=== PATIENT | male | born 1980 | race Caucasian/White ===

== ENCOUNTER → 2019-05-14 08:47 | Day surgery (SDC) | payer OTHER ==
[~2019-05-14 08:47] MED LIST: Buffered Lidocaine 1% SYRIN* 1 ML/SYRINGE INTRADERM ONE; Lactated Ringers 1000 ML Bag* 1,000 ML IV SCH; Lidocaine 2% PF * 5 ML VIAL ONE; Midazolam* 1 MG/ML 10 ML VIAL (10 MG) ONE; Ondansetron INJ* 2 MG/ML VIAL ONE; Propofol* 500 MG/50 ML BTL ONE
[2019-05-14 13:40] VITALS: BP 125/79
--- NOTE | 2019-05-14 21:03 | PRO ---
CC: Dr. Osmar Salvador.* EGD REPORT: DATE OF PROCEDURE: 05/14/19 - [facility] PRIMARY CARE PHYSICIAN: Dr. Osmar Salvador. INDICATION FOR PROCEDURE: Cirrhosis, portal hypertension. PROCEDURES PERFORMED: Complete esophagogastroduodenoscopy. MEDICATIONS GIVEN: Please se anesthesia record. DESCRIPTION OF PROCEDURE: After the EGD procedure including the risks, benefits , and alternatives with the risks not limited to perforation, surgery, missed lesions, and/or were explained to the patient, a written informed consent was obtained, IV medication was given, and a bite-block was placed between the teeth. The adult Olympus gastroscope was then inserted into the patient's oropharynx into the tubular esophagus. The tubular esophagus had evidence of [id number] varices in the proximal portion only. These were confined to only the proximal one- third of the esophagus. The distal two-thirds of the esophagus was without any varices whatsoever. The scope was then advanced through the lower esophageal sphincter into the stomach. Direct views showed diffuse portal hypertensive gastropathy most prevalent in the body, fundus and cardia. On retroflexion, no gastric varices were identified. The scope was then advanced through the widely patent pylorus into the duodenal bulb, C-loop, distal duodenum. These were normal in appearance. The scope was then removed from the patient. He tolerated the procedure well. He returned to recovery room in stable condition. IMPRESSION: 1. Complete esophagogastroduodenoscopy. 2. 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 3. No esophageal varices in the distal two-thirds of the esophagus. 4. Portal hypertensive gastropathy is present. 5. Oropharyngeal edema, non-specific, visualized on endoscopy. RECOMMENDATIONS: The patient unusually has proximal varices which are typically not indicative of strictly portal hypertension. His distal esophagus does not have evidence of varices even small in size. Proximal varices are typically related to potentially occlusion of the SVC or difficulties with the azygos vein. I would recommended primary gastro-enterologist obtain imaging of this vasculature by either CT of the chest or other modality. These are quite difficult to band given the sensitive nature of the proximal one-third of the esophagus. Certainly, if he ever develops bleeding, we would recommend banding in the most proximal portion first and then working downhill. We could consider beta blockade in this situation as well. I would recommend a repeat EGD in 1 to 2 years. [id number]/[facility] #: [id number] [facility] HOSPITALBrenna
== END | disposition home or self-care (01) ==
LOC: OR 08:47
PROVIDERS: ATTEND Internal Medicine Gastroenterology
DX: K76.6 Portal hypertension (principal); I85.00 Esophageal varices without bleeding; K74.60 Unspecified cirrhosis of liver; J44.9 Chronic obstructive pulmonary disease, unspecified; I10 Essential (primary) hypertension; B19.20 Unspecified viral hepatitis C without hepatic coma; F17.210 Nicotine dependence, cigarettes, uncomplicated
CPT/HCPCS: J2250; J2405; J2704

== ENCOUNTER 2019-07-16 10:30 | Emergency (ER) | payer SELFPAY ==
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
[2019-07-16 11:04] LABS: Hematocrit 37 % (42-52); Hemoglobin 12.4 g/dL (14.0-18.0); Mean Corpuscular HGB Conc 33 g/dL (31-36); Mean Corpuscular Hemoglobin 28 pg (27-31); Mean Corpuscular Volume 85 fL (80-94); Mean Platelet Volume 7.5 fL (7.4-10.4); Platelet Count 54 10^3/uL (150-450); Red Cell Distribution Width 16 % (10-15); White Blood Count 2.2 10^3/uL (3.5-10.8)
[2019-07-16 11:21] LABS: Albumin 3.2 g/dL (3.2-5.2); Albumin/Globulin Ratio 0.9 (1-3); BUN/Creatinine Ratio 17.6 (8-20); Calcium 8.8 mg/dL (8.6-10.3); EGFR African American 142.5 (>60); EGFR Non-African American 117.7 (>60); Globulin 3.5 g/dL (2-4); Potassium 3.4 mmol/L (3.5-5.0); Total Bilirubin 0.9 mg/dL (0.2-1.0); Total Protein 6.7 g/dL (6.4-8.9)
[2019-07-16] MEDS ORDERED: Iodixanol* (CONTRAST) 320 MG/ML 100 ML SDV IV ONE (11:34)
[2019-07-16 11:49] LABS: ABS Lymphocytes 0.6 10^3/ul (1.0-4.8); ABS Monocytes 0.3 10^3/ul (0-0.8); ABS Neutrophils 1.3 10^3/ul (1.5-7.7); Eosinophil % 1.9 %; Lymphocyte % 28.1 %; Nucleated Red Blood Cells % 0.1
[2019-07-16] MEDS ORDERED: Morphine 4 MG/ML VIAL (1 ml) 4 MG/ML VIAL IV ONE ×2 (12:32→13:47)
[2019-07-16 14:07] VITALS: BP 117/62
== END 2019-07-16 14:06 | disposition short-term general hospital (02) ==
LOC: ED 10:30
DX: S22.32XA Fracture of one rib, left side, initial encounter for closed fracture (principal); M25.512 Pain in left shoulder; D73.5 Infarction of spleen; D61.818 Other pancytopenia; K74.60 Unspecified cirrhosis of liver; Z87.891 Personal history of nicotine dependence; E11.9 Type 2 diabetes mellitus without complications; E03.9 Hypothyroidism, unspecified; J45.909 Unspecified asthma, uncomplicated; I10 Essential (primary) hypertension; R07.9 Chest pain, unspecified; V89.2XXA Person injured in unspecified motor-vehicle accident, traffic, initial encounter; Y92.9 Unspecified place or not applicable
CPT/HCPCS: 36415; 70450; 71260; 72125; 74177; 80053; 83690; 84484; 85025; 93005; 99284; J2270; Q9967

== ENCOUNTER 2022-03-12 12:06 | Inpatient (IN) ==
[2022-03-12 17:06] LABS: ABS Eosinophils 0.1 10^3/ul (0-0.6); ABS Lymphocytes 0.7 10^3/ul (1.0-4.8); ABS Monocytes 0.8 10^3/ul (0-0.8); ABS Neutrophils 2.3 10^3/ul (1.5-7.7); Eosinophil % 3.2 %; Hematocrit 32 % (42-52); Hemoglobin 10.7 g/dL (14.0-18.0); Mean Corpuscular HGB Conc 33 g/dL (31-36); Mean Corpuscular Hemoglobin 27 pg (27-31); Mean Corpuscular Volume 82 fL (80-94); Mean Platelet Volume 6.8 fL (7.4-10.4); Platelet Count 68 10^3/uL (150-450); Red Blood Count 3.92 10^6 /uL (4.18-5.48); Red Cell Distribution Width 15 % (10-15)
[2022-03-12 17:28] LABS: C Reactive Protein 47.18 mg/L (<8.01); Potassium 3.5 mmol/L (3.5-5.0)
[2022-03-12 17:54] LABS: Albumin 2.5 g/dL (3.2-5.2); Albumin/Globulin Ratio 0.8 (1-3); Direct Bilirubin 0.6 mg/dL (0.03-0.18); Globulin 3.1 g/dL (2-4); Total Bilirubin 1.6 mg/dL (0.2-1.0); Total Protein 5.6 g/dL (6.4-8.9)
[2022-03-12] MEDS ORDERED: Morphine 4 MG/ML VIAL (1 ml) IV ONE (17:55)
[2022-03-12] MEDS ORDERED: Cefepime 2 GM in Dextrose 2 GM/50 ML BAG IV ONE (17:55)
[2022-03-12] MEDS ORDERED: metroNIDAZOLE IV 500 MG/100ML 500 MG/100 ML BAG IVPB ONE (17:55)
[2022-03-12] MEDS ORDERED: Vancomycin 1,250 MG in NS 0.9% 250 ml 250 ML IVPB SCH (18:00)
[2022-03-12] MEDS ORDERED: Polyethylene Glycol 3350 17 GM PACKET PO PRN (19:27)
[2022-03-12] MEDS ORDERED: Vancomycin per Pharmacy 1 EA NOTE FOLLOW UP SCH (20:00)
[2022-03-12] MEDS ORDERED: Vancomycin 1,250 MG in NS 0.9% 250 ml 250 ML IVPB ONE (21:00)
[2022-03-12] MEDS: Enoxaparin 40 MG/0.4 ML SYR SUBCUT SCH (21:23)
[2022-03-13 05:14] LABS: INR 1.37 (0.89-1.11)
[2022-03-13 05:28] LABS: ABS Eosinophils 0.1 10^3/ul (0-0.6); ABS Lymphocytes 0.6 10^3/ul (1.0-4.8); ABS Monocytes 0.8 10^3/ul (0-0.8); ABS Neutrophils 2.2 10^3/ul (1.5-7.7); Hematocrit 30 % (42-52); Hemoglobin 10.1 g/dL (14.0-18.0); Lymphocyte % 16.6 %; Mean Corpuscular HGB Conc 34 g/dL (31-36); Mean Corpuscular Hemoglobin 28 pg (27-31); Mean Corpuscular Volume 83 fL (80-94); Nucleated Red Blood Cells % 0.1; Platelet Count 62 10^3/uL (150-450); Red Blood Count 3.59 10^6 /uL (4.18-5.48); Red Cell Distribution Width 15 % (10-15); White Blood Count 3.7 10^3/uL (3.5-10.8)
[2022-03-13 05:31] LABS: Albumin 2.2 g/dL (3.2-5.2); Albumin/Globulin Ratio 0.8 (1-3); C Reactive Protein 38.29 mg/L (<8.01); Calcium 7.7 mg/dL (8.6-10.3); Globulin 2.9 g/dL (2-4); Potassium 3.7 mmol/L (3.5-5.0); Total Bilirubin 1.7 mg/dL (0.2-1.0); Total Protein 5.1 g/dL (6.4-8.9); eGFR CKD-EPI 126.2 (>60)
[2022-03-13 05:49] LABS: Ferritin 171.7 ng/mL (24-336)
[2022-03-13] MEDS: Vancomycin 1,250 MG in NS 0.9% 250 ml 250 ML IVPB SCH ×3 (06:08→22:05)
[2022-03-13] MEDS: Cefepime 2 GM in Dextrose 2 GM/50 ML BAG IV SCH ×2 (06:21→17:37)
[2022-03-13] MEDS ORDERED: Methadone ORALSYR CONC LIQ 10 MG/ML PO SCH (09:00)
[2022-03-13] MEDS: Venlafaxine XR 75 mg PO SCH (10:58)
[2022-03-13] MEDS: Lactulose 30 ml UDC PO SCH ×2 (10:58→22:13)
[2022-03-13] MEDS ORDERED: Vancomycin per Pharmacy 1 EA NOTE FOLLOW UP SCH (15:00)
[2022-03-13] MEDS ORDERED: Vancomycin Trough Check NOTE FOLLOW UP ONE (21:00)
[2022-03-13] MEDS: Enoxaparin 40 MG/0.4 ML SYR SUBCUT SCH (22:05)
[2022-03-14] MEDS ORDERED: Vancomycin 1,500 MG in NS 0.9% 250 ml 250 ML IVPB SCH (06:00)
[2022-03-14 06:03] LABS: INR 1.37 (0.89-1.11)
[2022-03-14 06:05] LABS: ABS Eosinophils 0.1 10^3/ul (0-0.6); ABS Lymphocytes 0.6 10^3/ul (1.0-4.8); ABS Monocytes 0.8 10^3/ul (0-0.8); ABS Neutrophils 2.8 10^3/ul (1.5-7.7); Eosinophil % 3.1 %; Hematocrit 32 % (42-52); Hemoglobin 10.7 g/dL (14.0-18.0); Lymphocyte % 14.6 %; Mean Corpuscular HGB Conc 33 g/dL (31-36); Mean Corpuscular Hemoglobin 28 pg (27-31); Mean Corpuscular Volume 83 fL (80-94); Nucleated Red Blood Cells % 0.1; Platelet Count 71 10^3/uL (150-450); Red Blood Count 3.88 10^6 /uL (4.18-5.48); Red Cell Distribution Width 15 % (10-15); White Blood Count 4.4 10^3/uL (3.5-10.8)
[2022-03-14] MEDS: Cefepime 2 GM in Dextrose 2 GM/50 ML BAG IV SCH ×2 (06:07→17:50)
[2022-03-14 06:30] LABS: Albumin 2.3 g/dL (3.2-5.2); Albumin/Globulin Ratio 0.7 (1-3); Calcium 7.8 mg/dL (8.6-10.3); Globulin 3.1 g/dL (2-4); Magnesium 1.9 mg/dL (1.9-2.7); Potassium 3.8 mmol/L (3.5-5.0); Total Bilirubin 2.3 mg/dL (0.2-1.0); Total Protein 5.4 g/dL (6.4-8.9); eGFR CKD-EPI 132.2 (>60)
[2022-03-14] MEDS: Lactulose 30 ml UDC PO SCH ×2 (08:53→21:13)
[2022-03-14] MEDS: Venlafaxine XR 75 mg PO SCH (08:53)
[2022-03-14] MEDS ORDERED: Influenza vaccine *QUAD* *2022-23* 0.5 ML SYRINGE IM ONE (09:00)
[2022-03-14] MEDS ORDERED: Pneumococcal Vac 23-Polyvalent IM ONE (09:00)
[2022-03-14] MEDS: Methadone ORALSYR CONC LIQ 10 MG/ML PO SCH (10:06)
[2022-03-14] MEDS ORDERED: Iodixanol (CONTRAST) 320 MG/ML 100 ML SDV IV ONE (11:38)
[2022-03-14] MEDS: Enoxaparin 40 MG/0.4 ML SYR SUBCUT SCH (21:12)
[2022-03-15] MEDS ORDERED: Vancomycin Trough Check NOTE FOLLOW UP ONE (05:30)
[2022-03-15] MEDS: Cefepime 2 GM in Dextrose 2 GM/50 ML BAG IV SCH ×2 (06:07→18:41)
[2022-03-15 06:58] LABS: ABS Basophils 0.1 10^3/ul (0-0.2); ABS Eosinophils 0.2 10^3/ul (0-0.6); ABS Lymphocytes 0.7 10^3/ul (1.0-4.8); ABS Monocytes 1.1 10^3/ul (0-0.8); ABS Neutrophils 3.9 10^3/ul (1.5-7.7); Eosinophil % 3.1 %; Hematocrit 32 % (42-52); Hemoglobin 10.8 g/dL (14.0-18.0); Lymphocyte % 12.3 %; Mean Corpuscular HGB Conc 34 g/dL (31-36); Mean Corpuscular Hemoglobin 28 pg (27-31); Mean Corpuscular Volume 83 fL (80-94); Platelet Count 75 10^3/uL (150-450); Red Blood Count 3.88 10^6 /uL (4.18-5.48); Red Cell Distribution Width 15 % (10-15); White Blood Count 5.9 10^3/uL (3.5-10.8)
[2022-03-15 07:29] LABS: Albumin 2.4 g/dL (3.2-5.2); Albumin/Globulin Ratio 0.7 (1-3); Calcium 7.6 mg/dL (8.6-10.3); Globulin 3.4 g/dL (2-4); Magnesium 1.9 mg/dL (1.9-2.7); Phosphorus 2.7 mg/dL (2.5-5.0); Potassium 3.7 mmol/L (3.5-5.0); Total Bilirubin 2.1 mg/dL (0.2-1.0); Total Protein 5.8 g/dL (6.4-8.9); eGFR CKD-EPI 130.6 (>60)
[2022-03-15] MEDS: Lactulose 30 ml UDC PO SCH ×2 (08:42→20:18)
[2022-03-15] MEDS: Venlafaxine XR 75 mg PO SCH (08:42)
[2022-03-15] MEDS: Methadone ORALSYR CONC LIQ 10 MG/ML PO SCH (10:30)
[2022-03-15] MEDS: Enoxaparin 40 MG/0.4 ML SYR SUBCUT SCH (20:18)
[2022-03-16] MEDS: Cefepime 2 GM in Dextrose 2 GM/50 ML BAG IV SCH ×2 (05:08→17:44)
[2022-03-16 07:31] LABS: Hematocrit 32 % (42-52); Hemoglobin 10.7 g/dL (14.0-18.0); Mean Corpuscular HGB Conc 34 g/dL (31-36); Mean Corpuscular Hemoglobin 28 pg (27-31); Mean Corpuscular Volume 83 fL (80-94); Mean Platelet Volume 7.1 fL (7.4-10.4); Platelet Count 76 10^3/uL (150-450); Red Blood Count 3.82 10^6 /uL (4.18-5.48); Red Cell Distribution Width 16 % (10-15); White Blood Count 5.5 10^3/uL (3.5-10.8)
[2022-03-16 07:45] LABS: Calcium 7.9 mg/dL (8.6-10.3); Potassium 4.2 mmol/L (3.5-5.0); eGFR CKD-EPI 133.9 (>60)
[2022-03-16] MEDS: Venlafaxine XR 75 mg PO SCH (10:08)
[2022-03-16] MEDS: Lactulose 30 ml UDC PO SCH ×2 (10:08→19:39)
[2022-03-16] MEDS: Methadone ORALSYR CONC LIQ 10 MG/ML PO SCH (10:08)
[2022-03-16 10:49] LABS: Albumin 2.4 g/dL (3.2-5.2); Albumin/Globulin Ratio 0.7 (1-3); Globulin 3.4 g/dL (2-4); Total Bilirubin 1.7 mg/dL (0.2-1.0); Total Protein 5.8 g/dL (6.4-8.9)
[2022-03-16 11:30] LABS: INR 1.26 (0.89-1.11)
[2022-03-16] MEDS: Enoxaparin 40 MG/0.4 ML SYR SUBCUT SCH (19:40)
[2022-03-17] MEDS: Cefepime 2 GM in Dextrose 2 GM/50 ML BAG IV SCH ×2 (05:53→18:31)
[2022-03-17 06:54] LABS: Hematocrit 33 % (42-52); Hemoglobin 11.1 g/dL (14.0-18.0); Mean Corpuscular HGB Conc 34 g/dL (31-36); Mean Corpuscular Hemoglobin 28 pg (27-31); Mean Corpuscular Volume 83 fL (80-94); Mean Platelet Volume 7.1 fL (7.4-10.4); Platelet Count 84 10^3/uL (150-450); Red Blood Count 3.95 10^6 /uL (4.18-5.48); Red Cell Distribution Width 16 % (10-15); White Blood Count 5.5 10^3/uL (3.5-10.8)
[2022-03-17 07:11] LABS: Calcium 8.1 mg/dL (8.6-10.3); eGFR CKD-EPI 136.7 (>60)
[2022-03-17] MEDS: Lactulose 30 ml UDC PO SCH ×2 (10:26→20:04)
[2022-03-17] MEDS: Methadone ORALSYR CONC LIQ 10 MG/ML PO SCH (10:26)
[2022-03-17 12:34] LABS: Hepatitis C Antibody Reactive (Negative)
[2022-03-17] MEDS: Venlafaxine XR 75 mg PO SCH (12:54)
[2022-03-17] MEDS: Enoxaparin 40 MG/0.4 ML SYR SUBCUT SCH (20:05)
[2022-03-18] MEDS: Cefepime 2 GM in Dextrose 2 GM/50 ML BAG IV SCH (05:41)
[2022-03-18] MEDS: Lactulose 30 ml UDC PO SCH (09:36)
[2022-03-18] MEDS: Methadone ORALSYR CONC LIQ 10 MG/ML PO SCH (09:36)
[2022-03-18] MEDS: Venlafaxine XR 75 mg PO SCH (09:37)
[2022-03-18 11:20] VITALS: BP 125/57
== END 2022-03-18 12:50 | disposition home or self-care (01) | DRG 383 ==
LOC: ED 12:06 → SUATTDRO 03-13 00:03 → MED 03-13 00:03
PROVIDERS: ADMIT Student in an Organized Health Care Education/Training Program; ATTEND Internal Medicine

== ENCOUNTER 2023-01-07 13:35 | Inpatient (IN) ==
[2023-01-07 17:02] LABS: Hematocrit 32.3 % (38-53); Hemoglobin 11.1 g/dL (13.2-16.3); Mean Corpuscular Hemoglobin 28.2 pg (27-33); Mean Corpuscular Hgb Conc 34.3 g/dL (31-36); Mean Corpuscular Volume 82.4 fL (80-97); Red Blood Count 3.92 10^6/uL (4.06-5.63); Red Cell Distribution Width 14.9 % (12-17); White Blood Count 5.4 10^3/uL (3.6-10.2)
[2023-01-07 17:04] LABS: INR 1.81 (0.88-1.18)
[2023-01-07 17:35] LABS: ABS Eosinophils 0.1 10^3/uL (0.0-0.5); ABS Lymphocytes 0.5 10^3/uL (1.0-4.8); ABS Monocytes 0.6 10^3/uL (0.0-1.1); ABS Neutrophils 4.1 10^3/uL (1.5-7.6); ABS Nucleated RBC 0.01 10^3/ul; Eosinophil % 2.1 %; Lymphocyte % 9.2 %; Mean Platelet Volume 7.3 fL (7.5-11.2); Nucleated Red Blood Cells % 0.2 /100 WBC (0.0-0.4); Platelet Count 70 10^3/uL (150-450)
[2023-01-07 17:52] LABS: Albumin/Globulin Ratio 0.9 (1-3); C Reactive Protein 117.41 mg/L (<8.01); Calcium 8.5 mg/dL (8.6-10.3); Creatinine, Serum 0.61 mg/dL (0.67-1.17); Globulin 3.3 g/dL (2-4); Potassium 3.1 mmol/L (3.5-5.0); Total Bilirubin 2.1 mg/dL (0.2-1.0); Total Protein 6.3 g/dL (6.4-8.9)
[2023-01-07] MEDS ORDERED: Cefepime 2 GM in Dextrose 2 GM/50 ML BAG IV ONE (18:23)
[2023-01-07] MEDS ORDERED: Morphine 4 MG/ML VIAL (1 ml) IV ONE (18:23)
[2023-01-07] MEDS ORDERED: Vancomycin 1,500 MG in NS 0.9% 250 ml 250 ML IVPB ONE (18:23)
[2023-01-07] MEDS ORDERED: Venlafaxine XR 75 mg PO ONE (19:59)
[2023-01-07] MEDS ORDERED: Enoxaparin 40 MG/0.4 ML SYR SUBCUT SCH (21:00)
[2023-01-07] MEDS ORDERED: Vancomycin per Pharmacy 1 EA NOTE FOLLOW UP SCH (21:00)
[2023-01-07] MEDS ORDERED: cefTRIAXone 2 gm/50 mL D5W 2 GM/50 ML BAG IV SCH ×2 (21:15→21:45)
[2023-01-07] MEDS ORDERED: Potassium Chlor 20 meq TAB.ER PO ONE (21:37)
[2023-01-08] MEDS: Lactulose 30 ml UDC PO SCH ×5 (00:39→21:16)
[2023-01-08] MEDS: metroNIDAZOLE IV 500 MG/100ML 500 MG/100 ML BAG IVPB SCH ×3 (00:41→13:00)
[2023-01-08] MEDS ORDERED: Morphine 2 MG/ML SYRINGE IV PRN (04:52)
[2023-01-08 05:56] LABS: ABS Eosinophils 0.1 10^3/uL (0.0-0.5); ABS Lymphocytes 0.6 10^3/uL (1.0-4.8); ABS Monocytes 0.5 10^3/uL (0.0-1.1); ABS Nucleated RBC 0.04 10^3/ul; Eosinophil % 3.1 %; Hemoglobin 10.7 g/dL (13.2-16.3); Lymphocyte % 14.1 %; Mean Corpuscular Hemoglobin 28.3 pg (27-33); Mean Corpuscular Hgb Conc 34.4 g/dL (31-36); Mean Corpuscular Volume 82.3 fL (80-97); Mean Platelet Volume 7.2 fL (7.5-11.2); Nucleated Red Blood Cells % 0.8 /100 WBC (0.0-0.4); Platelet Count 69 10^3/uL (150-450); Red Blood Count 3.77 10^6/uL (4.06-5.63); Red Cell Distribution Width 15.3 % (12-17); White Blood Count 4.4 10^3/uL (3.6-10.2)
[2023-01-08] MEDS ORDERED: Magnesium Sulf 4 GM/100 ML IV 4,000 MG/100 ML BAG IVPB ONE (06:36)
[2023-01-08] MEDS: Vancomycin 1,250 MG in NS 0.9% 250 ml 250 ML IVPB SCH ×2 (06:42→14:58)
[2023-01-08] MEDS: Venlafaxine XR 75 mg PO SCH (08:54)
[2023-01-08] MEDS: MILK THISTLE 150 MG PO SCH (08:54)
[2023-01-08] MEDS ORDERED: Iodixanol (CONTRAST) 320 MG/ML 100 ML SDV IV ONE (10:15)
[2023-01-08] MEDS ORDERED: Lactulose 30 ml UDC PO SCH (14:00)
[2023-01-08] MEDS: Lactated Ringers 1000 ml BAG 1,000 ML IV SCH (18:31)
[2023-01-08] MEDS: cefTRIAXone 2 gm/50 mL D5W 2 GM/50 ML BAG IV SCH (21:16)
[2023-01-09] MEDS: Lactated Ringers 1000 ml BAG 1,000 ML IV SCH (03:19)
[2023-01-09] MEDS ORDERED: Vancomycin Trough Check NOTE FOLLOW UP ONE (05:30)
[2023-01-09 07:08] LABS: ABS Eosinophils 0.1 10^3/uL (0.0-0.5); ABS Lymphocytes 0.6 10^3/uL (1.0-4.8); ABS Monocytes 0.6 10^3/uL (0.0-1.1); ABS Neutrophils 2.3 10^3/uL (1.5-7.6); Eosinophil % 2.4 %; Hematocrit 30.1 % (38-53); Hemoglobin 10.4 g/dL (13.2-16.3); Mean Corpuscular Hemoglobin 28.7 pg (27-33); Mean Corpuscular Hgb Conc 34.7 g/dL (31-36); Mean Corpuscular Volume 82.8 fL (80-97); Mean Platelet Volume 6.9 fL (7.5-11.2); Nucleated Red Blood Cells % 0.1 /100 WBC (0.0-0.4); Platelet Count 70 10^3/uL (150-450); Red Blood Count 3.64 10^6/uL (4.06-5.63); Red Cell Distribution Width 14.9 % (12-17); White Blood Count 3.7 10^3/uL (3.6-10.2)
[2023-01-09 07:22] LABS: Calcium 8.2 mg/dL (8.6-10.3); Creatinine, Serum 0.55 mg/dL (0.67-1.17); Potassium 3.9 mmol/L (3.5-5.0); eGFR CKD-EPI 126.9 (>60)
[2023-01-09] MEDS: Venlafaxine XR 75 mg PO SCH (09:29)
[2023-01-09] MEDS: Lactulose 30 ml UDC PO SCH ×4 (09:29→20:50)
[2023-01-09] MEDS: MILK THISTLE 150 MG PO SCH (09:30)
[2023-01-09] MEDS: Acetaminophen IV 1 GM/100ML 1,000 MG/100 ML BAG IV SCH (20:47)
[2023-01-09] MEDS: cefTRIAXone 2 gm/50 mL D5W 2 GM/50 ML BAG IV SCH (21:21)
[2023-01-10] MEDS: Acetaminophen IV 1 GM/100ML 1,000 MG/100 ML BAG IV SCH ×3 (04:35→21:04)
[2023-01-10 06:42] LABS: ABS Eosinophils 0.1 10^3/uL (0.0-0.5); ABS Lymphocytes 0.6 10^3/uL (1.0-4.8); ABS Monocytes 0.5 10^3/uL (0.0-1.1); ABS Nucleated RBC 0.01 10^3/ul; Hematocrit 30.9 % (38-53); Hemoglobin 10.5 g/dL (13.2-16.3); Lymphocyte % 18.9 %; Mean Corpuscular Hemoglobin 28.6 pg (27-33); Mean Corpuscular Volume 84.2 fL (80-97); Mean Platelet Volume 7.3 fL (7.5-11.2); Nucleated Red Blood Cells % 0.2 /100 WBC (0.0-0.4); Platelet Count 73 10^3/uL (150-450); Red Blood Count 3.68 10^6/uL (4.06-5.63); Red Cell Distribution Width 15.1 % (12-17); White Blood Count 3.2 10^3/uL (3.6-10.2)
[2023-01-10 06:47] LABS: Calcium 8.4 mg/dL (8.6-10.3); Creatinine, Serum 0.57 mg/dL (0.67-1.17); Potassium 4.5 mmol/L (3.5-5.0); eGFR CKD-EPI 125.5 (>60)
[2023-01-10] MEDS: Lactulose 30 ml UDC PO SCH ×4 (11:26→20:31)
[2023-01-10] MEDS: Venlafaxine XR 75 mg PO SCH (11:26)
[2023-01-10] MEDS: MILK THISTLE 150 MG PO SCH (12:00)
[2023-01-10] MEDS: cefTRIAXone 2 gm/50 mL D5W 2 GM/50 ML BAG IV SCH (21:19)
[2023-01-11] MEDS: Acetaminophen IV 1 GM/100ML 1,000 MG/100 ML BAG IV SCH ×2 (03:33→11:46)
[2023-01-11] MEDS: Venlafaxine XR 75 mg PO SCH (07:55)
[2023-01-11] MEDS: MILK THISTLE 150 MG PO SCH (07:57)
[2023-01-11] MEDS: Lactulose 30 ml UDC PO SCH ×2 (07:57→13:11)
[2023-01-11 09:59] LABS: Calcium 8.6 mg/dL (8.6-10.3); Creatinine, Serum 0.59 mg/dL (0.67-1.17); Potassium 5.1 mmol/L (3.5-5.0); eGFR CKD-EPI 124.2 (>60)
[2023-01-11 10:02] VITALS: BP 102/57
[2023-01-11 10:02] LABS: ABS Eosinophils 0.1 10^3/uL (0.0-0.5); ABS Lymphocytes 0.5 10^3/uL (1.0-4.8); ABS Monocytes 0.4 10^3/uL (0.0-1.1); ABS Neutrophils 2.4 10^3/uL (1.5-7.6); Eosinophil % 2.8 %; Hematocrit 31.8 % (38-53); Hemoglobin 10.8 g/dL (13.2-16.3); Lymphocyte % 15.6 %; Mean Corpuscular Hemoglobin 28.8 pg (27-33); Mean Corpuscular Volume 84.7 fL (80-97); Mean Platelet Volume 6.8 fL (7.5-11.2); Nucleated Red Blood Cells % 0.1 /100 WBC (0.0-0.4); Platelet Count 71 10^3/uL (150-450); Red Blood Count 3.75 10^6/uL (4.06-5.63); White Blood Count 3.4 10^3/uL (3.6-10.2)
[2023-01-11 10:05] LABS: INR 1.76 (0.88-1.18)
== END 2023-01-11 14:15 | disposition home or self-care (01) | DRG 383 ==
LOC: ED 13:35 → EDHOLD 13:35 → SUATTDRO 20:25 → EDHOLD 01-08 14:21 → MED 01-08 14:54 → SUATTDRO 01-09 12:26
PROVIDERS: ADMIT Internal Medicine; ATTEND Internal Medicine

== ENCOUNTER 2023-02-23 14:24 | Observation (INO) ==
[2023-02-23 17:41] LABS: ABS Eosinophils 0.2 10^3/uL (0.0-0.5); ABS Lymphocytes 0.6 10^3/uL (1.0-4.8); ABS Monocytes 0.7 10^3/uL (0.0-1.1); ABS Neutrophils 2.4 10^3/uL (1.5-7.6); Eosinophil % 4.8 %; Hematocrit 32.9 % (38-53); Hemoglobin 11.2 g/dL (13.2-16.3); Lymphocyte % 15.3 %; Mean Corpuscular Hemoglobin 28.6 pg (27-33); Mean Corpuscular Hgb Conc 34.1 g/dL (31-36); Mean Corpuscular Volume 83.9 fL (80-97); Nucleated Red Blood Cells % 0.1 /100 WBC (0.0-0.4); Platelet Count 63 10^3/uL (150-450); Red Blood Count 3.92 10^6/uL (4.06-5.63); Red Cell Distribution Width 16.3 % (12-17); White Blood Count 3.9 10^3/uL (3.6-10.2)
[2023-02-23 17:49] LABS: Albumin 2.9 g/dL (3.2-5.2); Albumin/Globulin Ratio 0.9 (1-3); C Reactive Protein 32.11 mg/L (<8.01); Calcium 8.5 mg/dL (8.6-10.3); Creatinine, Serum 0.61 mg/dL (0.67-1.17); Globulin 3.3 g/dL (2-4); Potassium 3.6 mmol/L (3.5-5.0); Total Bilirubin 1.5 mg/dL (0.2-1.0); Total Protein 6.2 g/dL (6.4-8.9)
[2023-02-23] MEDS ORDERED: Lactulose 30 ml UDC PO ONE (20:29)
[2023-02-23] MEDS ORDERED: cefTRIAXone 1 gm/50 mL D5W 1 GM/50 ML BAG IV ONE (20:35)
[2023-02-23] MEDS ORDERED: metroNIDAZOLE IV 500 MG/100ML 500 MG/100 ML BAG IVPB ONE (20:36)
[2023-02-23] MEDS ORDERED: Morphine 2 MG/ML SYRINGE IV ONE (20:57)
[2023-02-24 07:52] LABS: ABS Eosinophils 0.2 10^3/uL (0.0-0.5); ABS Lymphocytes 0.8 10^3/uL (1.0-4.8); ABS Monocytes 0.7 10^3/uL (0.0-1.1); ABS Neutrophils 2.3 10^3/uL (1.5-7.6); ABS Nucleated RBC 0.01 10^3/ul; Eosinophil % 4.2 %; Hematocrit 32.3 % (38-53); Hemoglobin 11.1 g/dL (13.2-16.3); Lymphocyte % 19.8 %; Mean Corpuscular Hemoglobin 28.8 pg (27-33); Mean Corpuscular Hgb Conc 34.5 g/dL (31-36); Mean Corpuscular Volume 83.4 fL (80-97); Mean Platelet Volume 7.4 fL (7.5-11.2); Nucleated Red Blood Cells % 0.1 /100 WBC (0.0-0.4); Platelet Count 67 10^3/uL (150-450); Red Blood Count 3.87 10^6/uL (4.06-5.63); Red Cell Distribution Width 16.6 % (12-17); White Blood Count 3.9 10^3/uL (3.6-10.2)
[2023-02-24 08:03] LABS: Calcium 8.1 mg/dL (8.6-10.3); Creatinine, Serum 0.56 mg/dL (0.67-1.17); Potassium 3.9 mmol/L (3.5-5.0); eGFR CKD-EPI 126.2 (>60)
[2023-02-24] MEDS: Lactulose 30 ml UDC PO SCH ×3 (09:39→23:08)
[2023-02-24] MEDS: Cholecalciferol (VIT D3) 1,000 unit TAB PO SCH (09:41)
[2023-02-24] MEDS: Collagenase 250 units/gm OINT 1 tube TOPICAL SCH (09:41)
[2023-02-24] MEDS: Venlafaxine XR 75 mg PO SCH (10:48)
[2023-02-24] MEDS: Methadone ORALSYR CONC LIQ 10 MG/ML PO SCH (19:36)
[2023-02-24] MEDS ORDERED: cefTRIAXone 1 gm/50 mL D5W 1 GM/50 ML BAG IV SCH (21:00)
[2023-02-25 06:19] LABS: ABS Eosinophils 0.2 10^3/uL (0.0-0.5); ABS Lymphocytes 0.8 10^3/uL (1.0-4.8); ABS Monocytes 0.6 10^3/uL (0.0-1.1); ABS Neutrophils 2.7 10^3/uL (1.5-7.6); ABS Nucleated RBC 0.01 10^3/ul; Eosinophil % 3.9 %; Hemoglobin 11.6 g/dL (13.2-16.3); Lymphocyte % 18.6 %; Mean Corpuscular Hemoglobin 28.6 pg (27-33); Mean Corpuscular Hgb Conc 34.2 g/dL (31-36); Mean Corpuscular Volume 83.6 fL (80-97); Mean Platelet Volume 7.3 fL (7.5-11.2); Nucleated Red Blood Cells % 0.2 /100 WBC (0.0-0.4); Platelet Count 64 10^3/uL (150-450); Red Blood Count 4.06 10^6/uL (4.06-5.63); Red Cell Distribution Width 16.2 % (12-17); White Blood Count 4.3 10^3/uL (3.6-10.2)
[2023-02-25 06:30] LABS: Calcium 8.4 mg/dL (8.6-10.3); Creatinine, Serum 0.6 mg/dL (0.67-1.17); Magnesium 1.8 mg/dL (1.9-2.7); Potassium 3.5 mmol/L (3.5-5.0); eGFR CKD-EPI 123.6 (>60)
[2023-02-25] MEDS ORDERED: Magnesium Sulfate IV 1GM/100ML 1 GM/100 ML BAG IV ONE (07:26)
[2023-02-25] MEDS: Methadone ORALSYR CONC LIQ 10 MG/ML PO SCH (10:33)
[2023-02-25] MEDS: Cholecalciferol (VIT D3) 1,000 unit TAB PO SCH (10:33)
[2023-02-25] MEDS: Venlafaxine XR 75 mg PO SCH (10:33)
[2023-02-25] MEDS: Lactulose 30 ml UDC PO SCH ×2 (10:34→16:11)
[2023-02-25] MEDS: Collagenase 250 units/gm OINT 1 tube TOPICAL SCH (10:40)
[2023-02-25 14:07] VITALS: BP 134/70
== END 2023-02-25 16:20 | disposition home or self-care (01) ==
LOC: ED 14:24 → EDHOLD 14:24 → SUATTDRO 21:16 → MED 02-24 16:47
PROVIDERS: ADMIT Student in an Organized Health Care Education/Training Program; ATTEND Internal Medicine

== ENCOUNTER 2024-03-26 16:53 | Inpatient (IN) ==
[2024-03-26 17:32] LABS: Hematocrit 31.2 % (38-53); Hemoglobin 10.3 g/dL (13.2-16.3); Mean Corpuscular Hemoglobin 28.6 pg (27-33); Mean Corpuscular Volume 86.7 fL (80-97); Red Cell Distribution Width 18.2 % (12-17); White Blood Count 5.7 10^3/uL (3.6-10.2)
[2024-03-26 17:56] LABS: ABS Basophils 0.1 10^3/uL (0.0-0.1); ABS Eosinophils 0.1 10^3/uL (0.0-0.5); ABS Lymphocytes 0.6 10^3/uL (1.0-4.8); ABS Monocytes 0.8 10^3/uL (0.0-1.1); ABS Neutrophils 4.1 10^3/uL (1.5-7.6); Eosinophil % 1.6 %; Lymphocyte % 10.9 %; Mean Platelet Volume 7.9 fL (7.5-11.2); Platelet Count 64 10^3/uL (150-450)
[2024-03-26 18:05] LABS: Albumin 2.1 g/dL (3.2-5.2); Albumin/Globulin Ratio 0.7 (1-3); C Reactive Protein 29.29 mg/L (<8.01); Calcium 7.1 mg/dL (8.6-10.3); Creatinine, Serum 0.52 mg/dL (0.67-1.17); Potassium 3.4 mmol/L (3.5-5.0); Total Protein 5.1 g/dL (6.4-8.9); eGFR CKD-EPI 127.5 (>60)
[2024-03-26 19:37] LABS: Urine Appearance Clear; Urine Bilirubin 1+ (Negative); Urine Blood Negative (Negative); Urine Color Dark-Yellow; Urine Glucose Negative (Negative); Urine Ketones Negative (Negative); Urine Nitrite Negative (Negative); Urine Protein Trace (Negative); Urine Urobilinogen 3+ (Negative)
[2024-03-26] MEDS: Morphine 2 MG/ML SYRINGE IV ONE (20:21)
[2024-03-27] MEDS: Iodixanol (CONTRAST) 320 MG/ML 100 ML SDV IV ONE (02:16)
[2024-03-27] MEDS: Piperacillin/Tazobac 3.375 BAG 3.375 GM/100 ML BAG IV ONE (04:52)
[2024-03-27] MEDS: Vancomycin 1,250 MG in NS 0.9% 250 ml 250 ML IVPB ONE (06:18)
[2024-03-27] MEDS: Bumetanide IV 0.25 MG/ML 4 ml VIAL (1 mg) IV SLOW PU ONE ×2 (06:54→14:24)
[2024-03-27 07:16] LABS: INR 1.92 (0.85-1.14)
[2024-03-27] MEDS: Albumin Human 25% 25 GM/100 ML BTL IV ONE (08:22)
[2024-03-27] MEDS: Lactulose 30 ml UDC PO SCH (08:29)
[2024-03-27] MEDS: Potassium Chlor 20 meq TAB.ER PO ONE ×2 (08:29→20:52)
[2024-03-27] MEDS: Venlafaxine XR 75 mg PO SCH (08:39)
[2024-03-27] MEDS: RIFAXIMIN 550 MG PO SCH (08:41)
[2024-03-27] MEDS: Potassium Chloride LIQUID 20 MEQ/15 ML LIQUID PO ONE ×2 (08:41→10:42)
[2024-03-27] MEDS: Nystatin TOP POWDER 15 GM BTL TOPICAL SCH (08:42)
[2024-03-27] MEDS: Methadone ORALSYR CONC LIQ 10 MG/ML PO SCH (09:32)
[2024-03-27 10:44] LABS: ABS Eosinophils 0.1 10^3/uL (0.0-0.5); ABS Lymphocytes 0.4 10^3/uL (1.0-4.8); ABS Monocytes 0.8 10^3/uL (0.0-1.1); ABS Neutrophils 4.9 10^3/uL (1.5-7.6); Eosinophil % 1.5 %; Hematocrit 32.2 % (38-53); Hemoglobin 10.8 g/dL (13.2-16.3); Lymphocyte % 6.8 %; Mean Corpuscular Hemoglobin 28.7 pg (27-33); Mean Corpuscular Hgb Conc 33.4 g/dL (31-36); Mean Corpuscular Volume 85.8 fL (80-97); Platelet Count 68 10^3/uL (150-450); Red Blood Count 3.75 10^6/uL (4.06-5.63); White Blood Count 6.2 10^3/uL (3.6-10.2)
[2024-03-27 11:06] LABS: Albumin 2.6 g/dL (3.2-5.2); Albumin/Globulin Ratio 0.8 (1-3); Calcium 7.3 mg/dL (8.6-10.3); Creatinine, Serum 0.52 mg/dL (0.67-1.17); Direct Bilirubin 1.6 mg/dL (0.03-0.18); Globulin 3.1 g/dL (2-4); Indirect Bilirubin 1.6 mg/dL (0.3-1.0); Magnesium 1.6 mg/dL (1.9-2.7); Potassium 3.4 mmol/L (3.5-5.0); Total Bilirubin 3.2 mg/dL (0.2-1.0); Total Protein 5.7 g/dL (6.4-8.9); eGFR CKD-EPI 127.5 (>60)
[2024-03-27] MEDS: Morphine 2 MG/ML SYRINGE IV ONE (14:23)
[2024-03-28] MEDS: Bumetanide IV 0.25 MG/ML 4 ml VIAL (1 mg) IV SLOW PU SCH (09:20)
[2024-03-28] MEDS: Potassium Chlor 10 meq TAB PO SCH (10:12)
[2024-03-28] MEDS: Iohexol 300 (CONTRAST) 10 ML SDV IV ONE (11:18)
[2024-03-29 06:44] LABS: INR 2.22 (0.85-1.14)
[2024-03-29 06:58] LABS: Albumin 2.5 g/dL (3.2-5.2); Albumin/Globulin Ratio 0.8 (1-3); Calcium 7.4 mg/dL (8.6-10.3); Creatinine, Serum 0.46 mg/dL (0.67-1.17); Direct Bilirubin 1.1 mg/dL (0.03-0.18); Indirect Bilirubin 1.8 mg/dL (0.3-1.0); Magnesium 1.6 mg/dL (1.9-2.7); Potassium 3.7 mmol/L (3.5-5.0); Total Bilirubin 2.9 mg/dL (0.2-1.0); Total Protein 5.5 g/dL (6.4-8.9); eGFR CKD-EPI 132.3 (>60)
[2024-03-29 07:15] LABS: ABS Eosinophils 0.1 10^3/uL (0.0-0.5); ABS Lymphocytes 0.6 10^3/uL (1.0-4.8); ABS Monocytes 0.9 10^3/uL (0.0-1.1); ABS Neutrophils 3.6 10^3/uL (1.5-7.6); Eosinophil % 2.5 %; Hematocrit 30.2 % (38-53); Hemoglobin 10.3 g/dL (13.2-16.3); Lymphocyte % 12.2 %; Mean Corpuscular Hemoglobin 29.4 pg (27-33); Mean Corpuscular Hgb Conc 34.3 g/dL (31-36); Mean Corpuscular Volume 85.7 fL (80-97); Mean Platelet Volume 7.7 fL (7.5-11.2); Platelet Count 61 10^3/uL (150-450); Red Blood Count 3.52 10^6/uL (4.06-5.63); Red Cell Distribution Width 17.6 % (12-17); White Blood Count 5.2 10^3/uL (3.6-10.2)
[2024-03-29] MEDS: Potassium Chlor 10 meq TAB PO SCH (09:49)
[2024-03-29] MEDS: Magnesium Sulf 4 GM/100 ML IV 4,000 MG/100 ML BAG IVPB ONE (09:51)
[2024-03-30 06:55] LABS: ABS Basophils 0.1 10^3/uL (0.0-0.1); ABS Eosinophils 0.2 10^3/uL (0.0-0.5); ABS Lymphocytes 0.6 10^3/uL (1.0-4.8); ABS Monocytes 0.9 10^3/uL (0.0-1.1); ABS Neutrophils 3.2 10^3/uL (1.5-7.6); Eosinophil % 3.1 %; Hematocrit 30.1 % (38-53); Hemoglobin 10.4 g/dL (13.2-16.3); Lymphocyte % 11.3 %; Mean Corpuscular Hemoglobin 29.1 pg (27-33); Mean Corpuscular Hgb Conc 34.4 g/dL (31-36); Mean Corpuscular Volume 84.5 fL (80-97); Nucleated Red Blood Cells % 0.1 %/100WBC (0.0-0.8); Platelet Count 58 10^3/uL (150-450); Red Blood Count 3.56 10^6/uL (4.06-5.63); White Blood Count 4.9 10^3/uL (3.6-10.2)
[2024-03-30 07:02] LABS: INR 1.98 (0.85-1.14)
[2024-03-30 07:32] LABS: Albumin 2.4 g/dL (3.2-5.2); Albumin/Globulin Ratio 0.8 (1-3); Calcium 7.5 mg/dL (8.6-10.3); Creatinine, Serum 0.39 mg/dL (0.67-1.17); Globulin 3.2 g/dL (2-4); Indirect Bilirubin 1.7 mg/dL (0.3-1.0); Magnesium 1.9 mg/dL (1.9-2.7); Potassium 4.2 mmol/L (3.5-5.0); Total Bilirubin 2.7 mg/dL (0.2-1.0); Total Protein 5.6 g/dL (6.4-8.9)
[2024-03-30] MEDS: Influenza Vaccine *TRI* 2024-25* 0.5 ML SYRINGE IM ONE (08:45)
[2024-03-30] MEDS: COVID VAC 24-25 (12+) (Moderna) Syringe 0.5 mL IM ONE (13:38)
[2024-03-31 06:52] LABS: INR 2.06 (0.85-1.14)
[2024-03-31 07:17] LABS: ABS Basophils 0.1 10^3/uL (0.0-0.1); ABS Eosinophils 0.2 10^3/uL (0.0-0.5); ABS Lymphocytes 0.7 10^3/uL (1.0-4.8); ABS Monocytes 1.1 10^3/uL (0.0-1.1); ABS Neutrophils 4.9 10^3/uL (1.5-7.6); Eosinophil % 2.7 %; Hematocrit 34.6 % (38-53); Hemoglobin 11.7 g/dL (13.2-16.3); Lymphocyte % 10.6 %; Mean Corpuscular Hemoglobin 28.7 pg (27-33); Mean Corpuscular Hgb Conc 33.9 g/dL (31-36); Mean Corpuscular Volume 84.8 fL (80-97); Mean Platelet Volume 8.2 fL (7.5-11.2); Nucleated Red Blood Cells % 0.1 %/100WBC (0.0-0.8); Platelet Count 67 10^3/uL (150-450); Red Blood Count 4.08 10^6/uL (4.06-5.63); Red Cell Distribution Width 16.7 % (12-17)
[2024-03-31 07:23] LABS: Albumin 2.9 g/dL (3.2-5.2); Albumin/Globulin Ratio 0.8 (1-3); Creatinine, Serum 0.55 mg/dL (0.67-1.17); Globulin 3.6 g/dL (2-4); Potassium 4.4 mmol/L (3.5-5.0); Total Bilirubin 3.6 mg/dL (0.2-1.0); Total Protein 6.5 g/dL (6.4-8.9); eGFR CKD-EPI 125.3 (>60)
[2024-03-31] MEDS: Methadone ORALSYR CONC LIQ 10 MG/ML PO SCH (08:42)
[2024-03-31 10:45] LABS: Zinc, S 38 mcg/dL (60-106)
[2024-04-01 05:56] LABS: ABS Basophils 0.1 10^3/uL (0.0-0.1); ABS Eosinophils 0.1 10^3/uL (0.0-0.5); ABS Lymphocytes 0.6 10^3/uL (1.0-4.8); ABS Monocytes 0.6 10^3/uL (0.0-1.1); ABS Neutrophils 4.4 10^3/uL (1.5-7.6); Hematocrit 32.7 % (38-53); Hemoglobin 11.2 g/dL (13.2-16.3); Lymphocyte % 9.8 %; Mean Corpuscular Hgb Conc 34.3 g/dL (31-36); Mean Corpuscular Volume 84.6 fL (80-97); Mean Platelet Volume 8.2 fL (7.5-11.2); Platelet Count 63 10^3/uL (150-450); Red Blood Count 3.86 10^6/uL (4.06-5.63); Red Cell Distribution Width 17.4 % (12-17); White Blood Count 5.7 10^3/uL (3.6-10.2)
[2024-04-01 06:00] LABS: Albumin 2.7 g/dL (3.2-5.2); Albumin/Globulin Ratio 0.8 (1-3); Calcium 8.3 mg/dL (8.6-10.3); Creatinine, Serum 0.59 mg/dL (0.67-1.17); Globulin 3.6 g/dL (2-4); Potassium 4.4 mmol/L (3.5-5.0); Total Protein 6.3 g/dL (6.4-8.9); eGFR CKD-EPI 122.7 (>60)
[2024-04-01 08:43] LABS: Magnesium 1.8 mg/dL (1.9-2.7)
[2024-04-01] MEDS: Magnesium Sulfate 2 gm BAG 2 GM/50 ML BAG IVPB ONE (10:14)
[2024-04-02 07:06] LABS: INR 2.11 (0.85-1.14)
[2024-04-02 07:08] LABS: Albumin 2.8 g/dL (3.2-5.2); Albumin/Globulin Ratio 0.8 (1-3); Calcium 8.2 mg/dL (8.6-10.3); Creatinine, Serum 0.6 mg/dL (0.67-1.17); Globulin 3.6 g/dL (2-4); Potassium 3.9 mmol/L (3.5-5.0); Total Bilirubin 3.5 mg/dL (0.2-1.0); Total Protein 6.4 g/dL (6.4-8.9); eGFR CKD-EPI 122.1 (>60)
[2024-04-03 07:44] LABS: Calcium 8.4 mg/dL (8.6-10.3); Creatinine, Serum 0.55 mg/dL (0.67-1.17); Potassium 4.1 mmol/L (3.5-5.0); eGFR CKD-EPI 125.3 (>60)
[2024-04-03] MEDS ORDERED: Prochlorperazine 5 mg/ml 2 ml VIAL (10 mg) IV PRN (10:54)
[2024-04-03] MEDS: Lactulose 30 ml UDC PO SCH (14:56)
[2024-04-05 06:56] LABS: ABS Basophils 0.1 10^3/uL (0.0-0.1); ABS Eosinophils 0.1 10^3/uL (0.0-0.5); ABS Monocytes 1.2 10^3/uL (0.0-1.1); ABS Neutrophils 5.3 10^3/uL (1.5-7.6); Eosinophil % 1.3 %; Hematocrit 37.1 % (38-53); Hemoglobin 12.6 g/dL (13.2-16.3); Lymphocyte % 12.5 %; Mean Corpuscular Hemoglobin 28.9 pg (27-33); Mean Corpuscular Volume 85.1 fL (80-97); Mean Platelet Volume 7.6 fL (7.5-11.2); Nucleated Red Blood Cells % 0.1 %/100WBC (0.0-0.8); Platelet Count 83 10^3/uL (150-450); Red Blood Count 4.37 10^6/uL (4.06-5.63); Red Cell Distribution Width 17.6 % (12-17); White Blood Count 7.7 10^3/uL (3.6-10.2)
[2024-04-05 07:13] LABS: Albumin 3.2 g/dL (3.2-5.2); Albumin/Globulin Ratio 0.8 (1-3); Calcium 8.8 mg/dL (8.6-10.3); Creatinine, Serum 0.75 mg/dL (0.67-1.17); Globulin 4.2 g/dL (2-4); Potassium 3.6 mmol/L (3.5-5.0); Total Bilirubin 3.2 mg/dL (0.2-1.0); Total Protein 7.4 g/dL (6.4-8.9); eGFR CKD-EPI 114.1 (>60)
[2024-04-05 07:41] LABS: Magnesium 1.9 mg/dL (1.9-2.7)
[2024-04-05] MEDS: Bumetanide IV 0.25 MG/ML 4 ml VIAL (1 mg) IV SLOW PU SCH (13:14)
[2024-04-06 07:25] LABS: Albumin/Globulin Ratio 0.7 (1-3); Calcium 8.8 mg/dL (8.6-10.3); Creatinine, Serum 0.68 mg/dL (0.67-1.17); Globulin 4.2 g/dL (2-4); Potassium 4.2 mmol/L (3.5-5.0); Total Bilirubin 3.5 mg/dL (0.2-1.0); Total Protein 7.2 g/dL (6.4-8.9); eGFR CKD-EPI 117.5 (>60)
[2024-04-06] MEDS: Bumetanide IV 0.25 MG/ML 4 ml VIAL (1 mg) IV SLOW PU ONE (13:52)
[2024-04-06] MEDS: Lactulose 30 ml UDC PO SCH (21:48)
[2024-04-07 07:26] LABS: Albumin 3.1 g/dL (3.2-5.2); Albumin/Globulin Ratio 0.7 (1-3); Calcium 8.7 mg/dL (8.6-10.3); Creatinine, Serum 0.73 mg/dL (0.67-1.17); Globulin 4.4 g/dL (2-4); Potassium 3.5 mmol/L (3.5-5.0); Total Protein 7.5 g/dL (6.4-8.9); eGFR CKD-EPI 115.1 (>60)
[2024-04-07 14:41] VITALS: BP 140/69
[2024-04-07] MEDS ORDERED: RIFAXIMIN 550 MG PO SCH (21:00)
== END 2024-04-07 18:30 | disposition home or self-care (01) | DRG 280 ==
LOC: EDHOLD 16:53 → ED 16:53 → SUATTDRO 03-27 04:40 → MED 03-27 08:43 → SUATTDRO 03-29 16:35
PROVIDERS: ADMIT Internal Medicine; ATTEND Internal Medicine

== ENCOUNTER 2024-04-09 07:53 | Inpatient (IN) ==
[2024-04-09 08:46] LABS: ABS Eosinophils 0.2 10^3/uL (0.0-0.5); ABS Lymphocytes 0.7 10^3/uL (1.0-4.8); ABS Monocytes 1.3 10^3/uL (0.0-1.1); ABS Neutrophils 5.2 10^3/uL (1.5-7.6); ABS Nucleated RBC 0.01 10^3/ul; Eosinophil % 2.7 %; Hematocrit 36.3 % (38-53); Hemoglobin 12.1 g/dL (13.2-16.3); Mean Corpuscular Hemoglobin 28.5 pg (27-33); Mean Corpuscular Hgb Conc 33.3 g/dL (31-36); Mean Corpuscular Volume 85.6 fL (80-97); Nucleated Red Blood Cells % 0.2 %/100WBC (0.0-0.8); Platelet Count 67 10^3/uL (150-450); Red Blood Count 4.24 10^6/uL (4.06-5.63); Red Cell Distribution Width 17.1 % (12-17); White Blood Count 7.4 10^3/uL (3.6-10.2)
[2024-04-09 08:48] LABS: INR 1.98 (0.85-1.14)
[2024-04-09 09:04] LABS: High Sens Troponin Baseline 6 pg/mL (<20)
[2024-04-09] MEDS ORDERED: Lorazepam PYXIS KEY PRN (09:05)
[2024-04-09 09:20] LABS: ALT 54 U/L (7-52); AST 84 U/L (13-39); Albumin 2.7 g/dL (3.2-5.2); Albumin/Globulin Ratio 0.7 (1-3); Alcohol, S < 13 mg/dL (<13); Alkaline Phosphatase 273 U/L (35-149); Anion Gap 8 mmol/L (2-16); Blood Urea Nitrogen 21 mg/dL (6-24); CO2 Carbon Dioxide 28 mmol/L (22-32); CRP High Sensitivity 17.39 mg/L (<2.00); Calcium 8.2 mg/dL (8.6-10.3); Chloride 98 mmol/L (101-111); Creatinine, Serum 0.58 mg/dL (0.67-1.17); Globulin 3.8 g/dL (2-4); Glucose 78 mg/dL (70-100); Potassium 3.6 mmol/L (3.5-5.0); Sodium 134 mmol/L (135-145); Total Bilirubin 3.6 mg/dL (0.2-1.0); Total Protein 6.5 g/dL (6.4-8.9); eGFR CKD-EPI 123.3 (>60)
[2024-04-09] MEDS: Lactulose 300 ML for PR 200 GM/300 ML BTL PR ONE ×2 (09:48→20:10)
[2024-04-09] MEDS: LORazepam 2 mg VIAL 1 ml IV PUSH ONE (09:52)
[2024-04-09 10:14] LABS: High Sensitivity Troponin 1 Hr 7 pg/mL (<20)
[2024-04-09] MEDS: Lactulose 30 ml UDC NG TUBE ONE (10:54)
[2024-04-09 15:53] LABS: Direct Bilirubin 1.3 mg/dL (0.03-0.18); Indirect Bilirubin 2.3 mg/dL (0.3-1.0)
[2024-04-09] MEDS: cefTRIAXone 1 gm/50 mL D5W 1 GM/50 ML BAG IV SCH (18:44)
[2024-04-09] MEDS: KCL 20 MEQ/100 ML IVPREMIX 20 MEQ/100 ML BAG IV SCH (20:36)
[2024-04-09] MEDS: Enoxaparin 40 MG/0.4 ML SYR SUBCUT SCH (20:39)
[2024-04-09] MEDS: Lactulose 300 ML for PR 200 GM/300 ML BTL PR SCH (21:05)
[2024-04-09 22:15] LABS: Urine Appearance Clear; Urine Bilirubin 1+ (Negative); Urine Blood Negative (Negative); Urine Color Dark-Yellow; Urine Glucose Negative (Negative); Urine Ketones 1+ (Negative); Urine Nitrite Negative (Negative); Urine Protein 1+ (>=30 mg/dL) (Negative); Urine Specific Gravity 1.033 (1.002-1.030); Urine Urobilinogen 4+ (Negative)
[2024-04-09 22:16] LABS: Urine Bacteria Absent /HPF (Absent); Urine Red Blood Cell 2+(6-10/hpf) /HPF (0-Trace); Urine White Blood Cell Trace(0-5/hpf) /HPF (0-Trace)
[2024-04-09 22:44] LABS: Urine Benzodiazepine Screen None Detected (None Detect); Urine Cannabinoids Screen Presumptive Positive (None Detect); Urine Opiates Screen None Detected (None Detect)
[2024-04-10 07:35] LABS: Albumin 2.5 g/dL (3.2-5.2); Albumin/Globulin Ratio 0.7 (1-3); Direct Bilirubin 1.2 mg/dL (0.03-0.18); Globulin 3.7 g/dL (2-4); Magnesium 1.9 mg/dL (1.9-2.7); Total Bilirubin 4.2 mg/dL (0.2-1.0); Total Protein 6.2 g/dL (6.4-8.9)
[2024-04-10 07:43] LABS: Hematocrit 33.6 % (38-53); Hemoglobin 11.4 g/dL (13.2-16.3); Mean Corpuscular Hemoglobin 29.1 pg (27-33); Mean Corpuscular Hgb Conc 34.1 g/dL (31-36); Mean Corpuscular Volume 85.6 fL (80-97); Red Blood Count 3.92 10^6/uL (4.06-5.63); Red Cell Distribution Width 17.6 % (12-17); White Blood Count 5.5 10^3/uL (3.6-10.2)
[2024-04-10 08:26] LABS: Calcium 7.9 mg/dL (8.6-10.3); Creatinine, Serum 0.54 mg/dL (0.67-1.17)
[2024-04-10 08:33] LABS: ABS Eosinophils 0.1 10^3/uL (0.0-0.5); ABS Lymphocytes 0.8 10^3/uL (1.0-4.8); ABS Monocytes 1.1 10^3/uL (0.0-1.1); ABS Neutrophils 3.5 10^3/uL (1.5-7.6); ABS Nucleated RBC 0.01 10^3/ul; Eosinophil % 1.3 %; Lymphocyte % 14.3 %; Mean Platelet Volume 8.2 fL (7.5-11.2); Nucleated Red Blood Cells % 0.1 %/100WBC (0.0-0.8); Platelet Count 54 10^3/uL (150-450)
[2024-04-10] MEDS: Dextrose 50% Syringe 50 ml 25 GM/50 ML SYRINGE IV PUSH ONE (08:49)
[2024-04-10] MEDS: Methadone ORALSYR CONC LIQ 10 MG/ML PO SCH (09:00)
[2024-04-10 10:58] LABS: HIV 4th Generation Nonreactive (Nonreactive)
[2024-04-11 08:29] LABS: ABS Eosinophils 0.2 10^3/uL (0.0-0.5); ABS Lymphocytes 0.8 10^3/uL (1.0-4.8); ABS Neutrophils 3.3 10^3/uL (1.5-7.6); ABS Nucleated RBC 0.01 10^3/ul; Eosinophil % 3.7 %; Hematocrit 32.9 % (38-53); Hemoglobin 11.1 g/dL (13.2-16.3); Lymphocyte % 14.6 %; Mean Corpuscular Hgb Conc 33.8 g/dL (31-36); Mean Corpuscular Volume 85.9 fL (80-97); Nucleated Red Blood Cells % 0.2 %/100WBC (0.0-0.8); Platelet Count 51 10^3/uL (150-450); Red Blood Count 3.83 10^6/uL (4.06-5.63); Red Cell Distribution Width 17.9 % (12-17); White Blood Count 5.3 10^3/uL (3.6-10.2)
[2024-04-11 08:48] LABS: Albumin 2.5 g/dL (3.2-5.2); Albumin/Globulin Ratio 0.7 (1-3); Calcium 7.7 mg/dL (8.6-10.3); Creatinine, Serum 0.49 mg/dL (0.67-1.17); Direct Bilirubin 1.2 mg/dL (0.03-0.18); Globulin 3.6 g/dL (2-4); Indirect Bilirubin 1.8 mg/dL (0.3-1.0); Magnesium 1.8 mg/dL (1.9-2.7); Potassium 4.2 mmol/L (3.5-5.0); Total Protein 6.1 g/dL (6.4-8.9); eGFR CKD-EPI 129.8 (>60)
[2024-04-11 09:55] VITALS: BP 127/70
[2024-04-11] MEDS: Magnesium Sulfate 2 gm BAG 2 GM/50 ML BAG IVPB ONE (11:54)
== END 2024-04-11 14:15 | disposition home or self-care (01) ==
LOC: ED 07:53 → EDHOLD 13:04 → MED 16:00
PROVIDERS: ADMIT Hospitalist; ATTEND Hospitalist

== ENCOUNTER 2024-05-04 11:12 | Inpatient (IN) ==
[2024-05-04] MEDS: Lactated Ringers 1000 ml BAG 1,000 ML IV ONE ×2 (11:59→17:18)
[2024-05-04 12:13] LABS: Hematocrit 38.1 % (38-53); Hemoglobin 12.8 g/dL (13.2-16.3); Mean Corpuscular Hemoglobin 28.2 pg (27-33); Mean Corpuscular Hgb Conc 33.7 g/dL (31-36); Mean Corpuscular Volume 83.7 fL (80-97); Mean Platelet Volume 7.4 fL (7.5-11.2); Platelet Count 142 10^3/uL (150-450); Red Blood Count 4.55 10^6/uL (4.06-5.63); Red Cell Distribution Width 19.6 % (12-17); White Blood Count 13.3 10^3/uL (3.6-10.2)
[2024-05-04 12:41] LABS: Alcohol, S < 13 mg/dL (<13)
[2024-05-04 12:42] LABS: Albumin 2.2 g/dL (3.2-5.2); Albumin/Globulin Ratio 0.5 (1-3); Calcium 8.2 mg/dL (8.6-10.3); Creatinine, Serum 1.49 mg/dL (0.67-1.17); Globulin 4.5 g/dL (2-4); Potassium 5.9 mmol/L (3.5-5.0); Total Bilirubin 5.7 mg/dL (0.2-1.0); Total Protein 6.7 g/dL (6.4-8.9)
[2024-05-04 13:15] LABS: ABS Eosinophils 0.2 10^3/uL (0.0-0.5); ABS Lymphocytes 0.9 10^3/uL (1.0-4.8); ABS Monocytes 1.7 10^3/uL (0.0-1.1); ABS Neutrophils 10.5 10^3/uL (1.5-7.6); ABS Nucleated RBC 0.02 10^3/ul; Anisocytosis 1+; Eosinophil % 1.4 %; Lymphocyte % 6.5 %; Nucleated Red Blood Cells % 0.1 %/100WBC (0.0-0.8); Toxic Granulation 2+
[2024-05-04 13:20] LABS: INR 3.59 (0.85-1.14)
[2024-05-04 13:49] LABS: High Sensitivity Troponin 1 Hr 16 pg/mL (<20)
[2024-05-04] MEDS ORDERED: Sulfur Hexaflouride MICROSPHR 25 MG VIAL IV PRN (15:16)
[2024-05-04] MEDS: ceFAZolin 1 GM in Dextrose 1 GM/50 ML BAG IVPB SCH (16:37)
[2024-05-04] MEDS: Lactulose 30 ml UDC PO SCH (16:37)
[2024-05-04 17:30] LABS: C Reactive Protein 117.41 mg/L (<8.01)
[2024-05-04 18:07] LABS: Vitamin B12 > 1450 pg/mL (180-914)
[2024-05-05] MEDS: Lidocaine PATCH 5% PATCH TRANSDERM SCH (01:28)
[2024-05-05 07:18] LABS: INR 2.94 (0.85-1.14)
[2024-05-05 07:26] LABS: Hematocrit 35.5 % (38-53); Hemoglobin 11.8 g/dL (13.2-16.3); Mean Corpuscular Hgb Conc 33.4 g/dL (31-36); Mean Corpuscular Volume 84.1 fL (80-97); Mean Platelet Volume 7.7 fL (7.5-11.2); Platelet Count 130 10^3/uL (150-450); Red Blood Count 4.22 10^6/uL (4.06-5.63); White Blood Count 12.9 10^3/uL (3.6-10.2)
[2024-05-05 07:58] LABS: Albumin 2.1 g/dL (3.2-5.2); Albumin/Globulin Ratio 0.5 (1-3); Calcium 8.2 mg/dL (8.6-10.3); Creatinine, Serum 1.24 mg/dL (0.67-1.17); Globulin 4.2 g/dL (2-4); Magnesium 2.4 mg/dL (1.9-2.7); Potassium 5.9 mmol/L (3.5-5.0); Total Bilirubin 6.7 mg/dL (0.2-1.0); Total Protein 6.3 g/dL (6.4-8.9); eGFR CKD-EPI 73.5 (>60)
[2024-05-05] MEDS: Dextrose 50% Syringe 50 ml 25 GM/50 ML SYRINGE IV PUSH PRN (08:04)
[2024-05-05] MEDS: NS 0.9% 1000 ml BAG 1,000 ML IV SCH (08:45)
[2024-05-05] MEDS ORDERED: Methadone ORALSYR CONC LIQ 10 MG/ML PO SCH (09:00)
[2024-05-05 09:49] LABS: Osmolality Serum 279 mOsm/kg (275-295)
[2024-05-05 09:54] LABS: ABS Basophils 0.2 10^3/uL (0.0-0.1); ABS Eosinophils 0.1 10^3/uL (0.0-0.5); ABS Lymphocytes 0.9 10^3/uL (1.0-4.8); ABS Monocytes 1.9 10^3/uL (0.0-1.1); ABS Neutrophils 9.8 10^3/uL (1.5-7.6); ABS Nucleated RBC 0.01 10^3/ul; Lymphocyte % 7.1 %; Nucleated Red Blood Cells % 0.1 %/100WBC (0.0-0.8)
[2024-05-05] MEDS: SODIUM ZIRCONIUM CYCLOSILICATE 10 GM PACKET PO ONE (10:31)
[2024-05-05] MEDS: Methadone ORALSYR CONC LIQ 10 MG/ML PO SCH (10:37)
[2024-05-05] MEDS ORDERED: Dextrose 50% Syringe 50 ml 25 GM/50 ML SYRINGE IV PUSH PRN (11:57)
[2024-05-05] MEDS ORDERED: Vancomycin per Pharmacy 1 EA NOTE FOLLOW UP SCH (12:00)
[2024-05-05] MEDS: D5NS 0.9% 1000 ml BAG 1,000 ML IV SCH (12:28)
[2024-05-05] MEDS: Vancomycin 1,250 MG in NS 0.9% 250 ml 250 ML IVPB ONE (13:03)
[2024-05-05 14:46] LABS: Urine Appearance Clear; Urine Bilirubin 1+ (Negative); Urine Blood Trace (Negative); Urine Color Yellow; Urine Glucose Negative (Negative); Urine Ketones Negative (Negative); Urine Nitrite Negative (Negative); Urine Protein Negative (Negative); Urine Urobilinogen 1+ (Negative); Urine pH 5.5 (5.0-8.0)
[2024-05-05 15:09] LABS: Urine Benzodiazepine Screen None Detected (None Detect); Urine Cannabinoids Screen None Detected (None Detect); Urine Opiates Screen None Detected (None Detect)
[2024-05-05 16:05] LABS: Urine Osmo 569 mOsm/kg (150-1150)
[2024-05-05 19:11] LABS: Calcium 7.9 mg/dL (8.6-10.3); Creatinine, Serum 1.04 mg/dL (0.67-1.17); Potassium 5.3 mmol/L (3.5-5.0); eGFR CKD-EPI 90.8 (>60)
[2024-05-06] MEDS: Vancomycin 1,250 MG in NS 0.9% 250 ml 250 ML IVPB SCH (00:09)
[2024-05-06 07:09] LABS: Hematocrit 32.7 % (38-53); Hemoglobin 11.2 g/dL (13.2-16.3); Mean Corpuscular Hemoglobin 28.5 pg (27-33); Mean Corpuscular Hgb Conc 34.1 g/dL (31-36); Mean Corpuscular Volume 83.6 fL (80-97); Mean Platelet Volume 7.7 fL (7.5-11.2); Platelet Count 100 10^3/uL (150-450); Red Blood Count 3.91 10^6/uL (4.06-5.63)
[2024-05-06 07:10] LABS: ABS Basophils 0.1 10^3/uL (0.0-0.1); ABS Eosinophils 0.2 10^3/uL (0.0-0.5); ABS Lymphocytes 0.9 10^3/uL (1.0-4.8); ABS Monocytes 1.8 10^3/uL (0.0-1.1); ABS Neutrophils 6.9 10^3/uL (1.5-7.6); ABS Nucleated RBC 0.01 10^3/ul; Eosinophil % 2.1 %; Lymphocyte % 9.3 %; Nucleated Red Blood Cells % 0.1 %/100WBC (0.0-0.8)
[2024-05-06 07:14] LABS: Albumin 1.9 g/dL (3.2-5.2); Albumin/Globulin Ratio 0.5 (1-3); Calcium 7.7 mg/dL (8.6-10.3); Creatinine, Serum 0.84 mg/dL (0.67-1.17); Potassium 4.7 mmol/L (3.5-5.0); Total Bilirubin 5.6 mg/dL (0.2-1.0); Total Protein 5.9 g/dL (6.4-8.9); eGFR CKD-EPI 110.3 (>60)
[2024-05-06] MEDS ORDERED: Methadone ORALSYR CONC LIQ 10 MG/ML PO SCH (13:00)
[2024-05-06] MEDS: ceFAZolin 2 GM PREMIX 2 GM/50 ML BAG IV SCH (13:31)
[2024-05-06] MEDS: Iohexol 300 (CONTRAST) 10 ML SDV IV ONE (15:34)
[2024-05-07 07:13] LABS: Hemoglobin 11.1 g/dL (13.2-16.3); Mean Corpuscular Hemoglobin 28.5 pg (27-33); Mean Corpuscular Hgb Conc 33.7 g/dL (31-36); Mean Corpuscular Volume 84.4 fL (80-97); Red Blood Count 3.91 10^6/uL (4.06-5.63); Red Cell Distribution Width 19.6 % (12-17); White Blood Count 11.1 10^3/uL (3.6-10.2)
[2024-05-07 07:24] LABS: Albumin 1.9 g/dL (3.2-5.2); Albumin/Globulin Ratio 0.4 (1-3); Calcium 7.8 mg/dL (8.6-10.3); Creatinine, Serum 0.71 mg/dL (0.67-1.17); Globulin 4.4 g/dL (2-4); Potassium 4.7 mmol/L (3.5-5.0); Total Protein 6.3 g/dL (6.4-8.9)
[2024-05-07 07:55] LABS: ABS Eosinophils 0.2 10^3/uL (0.0-0.5); ABS Lymphocytes 0.9 10^3/uL (1.0-4.8); Anisocytosis 2+; Eosinophil % 1.9 %; Mean Platelet Volume 7.4 fL (7.5-11.2); Platelet Count 107 10^3/uL (150-450); Toxic Granulation 2+
[2024-05-07] MEDS ORDERED: Vancomycin Trough Check NOTE FOLLOW UP ONE (12:30)
[2024-05-07 13:58] VITALS: BP 129/65
== END 2024-05-07 17:55 | disposition home or self-care (01) | DRG 720 ==
LOC: EDHOLD 11:12 → ED 11:12 → SUATTDRO 13:51 → MEDTELE 14:34
PROVIDERS: ADMIT Student in an Organized Health Care Education/Training Program; ATTEND Internal Medicine

== ENCOUNTER 2024-05-13 21:14 | Inpatient (IN) ==
[2024-05-13 22:43] LABS: ABS Basophils 0.1 10^3/uL (0.0-0.1); ABS Eosinophils 0.1 10^3/uL (0.0-0.5); ABS Lymphocytes 0.7 10^3/uL (1.0-4.8); ABS Monocytes 0.8 10^3/uL (0.0-1.1); ABS Nucleated RBC 0.01 10^3/ul; Hemoglobin 12.3 g/dL (13.2-16.3); Lymphocyte % 7.7 %; Mean Corpuscular Hemoglobin 29.5 pg (27-33); Mean Corpuscular Hgb Conc 34.1 g/dL (31-36); Mean Corpuscular Volume 86.4 fL (80-97); Mean Platelet Volume 7.1 fL (7.5-11.2); Nucleated Red Blood Cells % 0.1 %/100WBC (0.0-0.8); Platelet Count 197 10^3/uL (150-450); Red Blood Count 4.17 10^6/uL (4.06-5.63); Red Cell Distribution Width 20.8 % (12-17); White Blood Count 8.6 10^3/uL (3.6-10.2)
[2024-05-13 22:56] LABS: Albumin 2.1 g/dL (3.2-5.2); Albumin/Globulin Ratio 0.4 (1-3); C Reactive Protein 36.92 mg/L (<8.01); Calcium 8.5 mg/dL (8.6-10.3); Creatinine, Serum 1.07 mg/dL (0.67-1.17); Potassium 5.2 mmol/L (3.5-5.0); Total Bilirubin 8.2 mg/dL (0.2-1.0); Total Protein 7.1 g/dL (6.4-8.9); eGFR CKD-EPI 87.8 (>60)
[2024-05-13] MEDS: Iohexol 300 (CONTRAST) 10 ML SDV IV ONE (23:28)
[2024-05-14] MEDS: Morphine 4 MG/ML VIAL (1 ml) IV ONE (03:51)
[2024-05-14] MEDS: Iohexol 350 (CONTRAST) 500 ML MDV IV ONE (04:36)
[2024-05-14] MEDS: Heparin DRIP 25,000 UNITS BAG 25,000 UNITS/250 ML BAG IV SCH (06:31)
[2024-05-14] MEDS ORDERED: Heparin 5000 UNITS/ML 1 mL VIAL IV SCH (07:00)
[2024-05-14 07:06] LABS: Hematocrit 33.1 % (38-53); Mean Corpuscular Hemoglobin 28.8 pg (27-33); Mean Corpuscular Hgb Conc 33.3 g/dL (31-36); Mean Corpuscular Volume 86.5 fL (80-97); Red Blood Count 3.83 10^6/uL (4.06-5.63); Red Cell Distribution Width 21.9 % (12-17); White Blood Count 10.1 10^3/uL (3.6-10.2)
[2024-05-14 07:19] LABS: Creatinine, Serum 0.93 mg/dL (0.67-1.17); eGFR CKD-EPI 103.8 (>60)
[2024-05-14 07:36] LABS: ABS Eosinophils 0.1 10^3/uL (0.0-0.5); ABS Lymphocytes 0.8 10^3/uL (1.0-4.8); ABS Monocytes 1.2 10^3/uL (0.0-1.1); Lymphocyte % 7.9 %; Mean Platelet Volume 6.9 fL (7.5-11.2); Platelet Count 177 10^3/uL (150-450)
[2024-05-14] MEDS ORDERED: Lactulose 30 ml UDC PO SCH (09:00)
[2024-05-14 10:05] LABS: Calcium 7.9 mg/dL (8.6-10.3); Creatinine, Serum 0.98 mg/dL (0.67-1.17); Potassium 5.2 mmol/L (3.5-5.0); eGFR CKD-EPI 97.5 (>60)
[2024-05-14] MEDS: Morphine 2 MG/ML SYRINGE IV PRN (11:38)
[2024-05-15 07:01] LABS: Calcium 8.2 mg/dL (8.6-10.3); Creatinine, Serum 0.96 mg/dL (0.67-1.17); Magnesium 2.3 mg/dL (1.9-2.7); Potassium 6.4 mmol/L (3.5-5.0)
[2024-05-15 07:37] LABS: ABS Eosinophils 0.2 10^3/uL (0.0-0.5); ABS Lymphocytes 0.8 10^3/uL (1.0-4.8); ABS Monocytes 0.9 10^3/uL (0.0-1.1); ABS Nucleated RBC 0.01 10^3/ul; Eosinophil % 2.3 %; Hematocrit 34.1 % (38-53); Hemoglobin 11.4 g/dL (13.2-16.3); Lymphocyte % 11.8 %; Mean Corpuscular Hemoglobin 29.4 pg (27-33); Mean Corpuscular Hgb Conc 33.6 g/dL (31-36); Mean Corpuscular Volume 87.7 fL (80-97); Mean Platelet Volume 7.1 fL (7.5-11.2); Nucleated Red Blood Cells % 0.1 %/100WBC (0.0-0.8); Platelet Count 159 10^3/uL (150-450); Red Blood Count 3.89 10^6/uL (4.06-5.63); Red Cell Distribution Width 21.7 % (12-17); White Blood Count 6.9 10^3/uL (3.6-10.2)
[2024-05-15] MEDS: SODIUM ZIRCONIUM CYCLOSILICATE 10 GM PACKET PO ONE ×3 (07:49→19:40)
[2024-05-15 08:14] LABS: INR 2.08 (0.85-1.14)
[2024-05-15] MEDS: Dextrose 50% Syringe 50 ml 25 GM/50 ML SYRINGE IV PUSH ONE (08:30)
[2024-05-15] MEDS: Enoxaparin 80 MG/0.8 ML SYR SUBCUT SCH (09:28)
[2024-05-15] MEDS: CALCIUM GLUCONATE 1GM/50ML NS 1 GM/50 ML BAG IV SCH (09:42)
[2024-05-15 12:19] LABS: Calcium 8.3 mg/dL (8.6-10.3); Creatinine, Serum 0.89 mg/dL (0.67-1.17); Potassium 6.2 mmol/L (3.5-5.0); eGFR CKD-EPI 108.4 (>60)
[2024-05-15 15:01] LABS: Calcium 8.2 mg/dL (8.6-10.3); Creatinine, Serum 0.88 mg/dL (0.67-1.17); Potassium 5.5 mmol/L (3.5-5.0); eGFR CKD-EPI 108.7 (>60)
[2024-05-15] MEDS: Lactulose 30 ml UDC PO SCH (15:56)
[2024-05-15] MEDS: Warfarin per PHARMACY **NOTE FOLLOW UP SCH (15:56)
[2024-05-15] MEDS ORDERED: Warfarin per PHARMACY **NOTE FOLLOW UP SCH (17:00)
[2024-05-15] MEDS ORDERED: Morphine 2 MG/ML SYRINGE IV PRN (17:52)
[2024-05-15 18:57] LABS: Calcium 8.1 mg/dL (8.6-10.3); Creatinine, Serum 0.97 mg/dL (0.67-1.17); Potassium 5.5 mmol/L (3.5-5.0); eGFR CKD-EPI 98.7 (>60)
[2024-05-15 19:57] LABS: Direct Bilirubin 6.5 mg/dL (0.03-0.18); Indirect Bilirubin 4.8 mg/dL (0.3-1.0); Total Bilirubin 11.3 mg/dL (0.2-1.0)
[2024-05-16 06:22] LABS: INR 2.22 (0.85-1.14)
[2024-05-16 08:10] LABS: Albumin 1.9 g/dL (3.2-5.2); Albumin/Globulin Ratio 0.4 (1-3); Calcium 8.3 mg/dL (8.6-10.3); Creatinine, Serum 1.01 mg/dL (0.67-1.17); Globulin 4.5 g/dL (2-4); Magnesium 2.1 mg/dL (1.9-2.7); Potassium 5.3 mmol/L (3.5-5.0); Total Bilirubin 11.1 mg/dL (0.2-1.0); Total Protein 6.4 g/dL (6.4-8.9)
[2024-05-16 08:22] LABS: Hematocrit 32.5 % (38-53); Mean Corpuscular Hemoglobin 29.7 pg (27-33); Mean Corpuscular Hgb Conc 33.9 g/dL (31-36); Mean Corpuscular Volume 87.4 fL (80-97); Mean Platelet Volume 7.4 fL (7.5-11.2); Platelet Count 136 10^3/uL (150-450); Red Blood Count 3.72 10^6/uL (4.06-5.63); Red Cell Distribution Width 22.2 % (12-17); White Blood Count 7.7 10^3/uL (3.6-10.2)
[2024-05-16] MEDS ORDERED: Naloxone Nasal Spray 4 MG/0.1 ML NASAL.SPR INTRANASAL PRN (12:32)
[2024-05-16 18:03] LABS: Urine Appearance Clear; Urine Bilirubin 2+ (Negative); Urine Blood Negative (Negative); Urine Color Dark-Yellow; Urine Glucose Negative (Negative); Urine Ketones Negative (Negative); Urine Nitrite Negative (Negative); Urine Protein Negative (Negative); Urine Specific Gravity 1.019 (1.002-1.030); Urine Urobilinogen 3+ (Negative); Urine pH 5.5 (5.0-8.0)
[2024-05-17] MEDS: HYDROcodone/ACETAMIN 5/325 mg TAB PO ONE (03:56)
[2024-05-17 06:34] LABS: Hematocrit 31.4 % (38-53); Hemoglobin 10.7 g/dL (13.2-16.3); Mean Corpuscular Hemoglobin 29.5 pg (27-33); Mean Corpuscular Hgb Conc 33.9 g/dL (31-36); Mean Corpuscular Volume 86.9 fL (80-97); Red Blood Count 3.62 10^6/uL (4.06-5.63); Red Cell Distribution Width 21.7 % (12-17); White Blood Count 7.4 10^3/uL (3.6-10.2)
[2024-05-17 06:49] LABS: Calcium 7.9 mg/dL (8.6-10.3); Creatinine, Serum 0.95 mg/dL (0.67-1.17); Potassium 5.4 mmol/L (3.5-5.0); eGFR CKD-EPI 101.2 (>60)
[2024-05-17 06:55] LABS: INR 5.73 (0.85-1.14)
[2024-05-17 07:22] LABS: ABS Eosinophils 0.2 10^3/uL (0.0-0.5); ABS Lymphocytes 0.9 10^3/uL (1.0-4.8); ABS Monocytes 0.9 10^3/uL (0.0-1.1); ABS Neutrophils 5.3 10^3/uL (1.5-7.6); ABS Nucleated RBC 0.01 10^3/ul; Eosinophil % 2.3 %; Lymphocyte % 12.7 %; Mean Platelet Volume 7.7 fL (7.5-11.2); Nucleated Red Blood Cells % 0.1 %/100WBC (0.0-0.8); Platelet Count 117 10^3/uL (150-450)
[2024-05-17] MEDS: Morphine 2 MG/ML SYRINGE IV PRN ×2 (08:09→18:51)
[2024-05-17] MEDS: Ondansetron 4 mg VIAL 2 MG/ML 2 ml VIAL IV PRN (19:45)
[2024-05-18 06:26] LABS: ABS Eosinophils 0.2 10^3/uL (0.0-0.5); ABS Lymphocytes 0.9 10^3/uL (1.0-4.8); ABS Monocytes 0.5 10^3/uL (0.0-1.1); ABS Neutrophils 6.8 10^3/uL (1.5-7.6); ABS Nucleated RBC 0.02 10^3/ul; Eosinophil % 2.6 %; Hematocrit 30.8 % (38-53); Hemoglobin 10.5 g/dL (13.2-16.3); Lymphocyte % 10.6 %; Mean Corpuscular Hemoglobin 29.6 pg (27-33); Mean Corpuscular Hgb Conc 34.2 g/dL (31-36); Mean Corpuscular Volume 86.6 fL (80-97); Mean Platelet Volume 7.3 fL (7.5-11.2); Nucleated Red Blood Cells % 0.2 %/100WBC (0.0-0.8); Platelet Count 97 10^3/uL (150-450); Red Blood Count 3.56 10^6/uL (4.06-5.63); Red Cell Distribution Width 21.8 % (12-17); White Blood Count 8.5 10^3/uL (3.6-10.2)
[2024-05-18 06:34] LABS: INR 12.27 (0.85-1.14)
[2024-05-18] MEDS: Phytonadione Oral Solution 5 MG/25 ML UDC PO ONE ×2 (06:56→18:41)
[2024-05-18 07:28] LABS: Creatinine, Serum 0.9 mg/dL (0.67-1.17); Potassium 6.4 mmol/L (3.5-5.0)
[2024-05-18] MEDS: Dextrose 50% Syringe 50 ml 25 GM/50 ML SYRINGE IV PUSH PRN (08:18)
[2024-05-18] MEDS: SODIUM ZIRCONIUM CYCLOSILICATE 10 GM PACKET PO ONE (08:25)
[2024-05-18 10:11] LABS: Calcium 7.9 mg/dL (8.6-10.3); Creatinine, Serum 0.91 mg/dL (0.67-1.17); eGFR CKD-EPI 106.6 (>60)
[2024-05-18 11:22] LABS: Activated Partial Thrombo Time 72.4 seconds (26.0-38.0)
[2024-05-18 19:32] LABS: INR 4.03 (0.85-1.14)
[2024-05-19] MEDS: Nystatin SUSPENSION 100,000 UNITS/ML UDC PO ONE ×2 (04:05→16:53)
[2024-05-19 06:38] LABS: Hematocrit 29.4 % (38-53); Hemoglobin 10.1 g/dL (13.2-16.3); Mean Corpuscular Hemoglobin 30.2 pg (27-33); Mean Corpuscular Hgb Conc 34.4 g/dL (31-36); Mean Corpuscular Volume 87.7 fL (80-97); Red Blood Count 3.35 10^6/uL (4.06-5.63)
[2024-05-19 06:53] LABS: INR 2.99 (0.85-1.14)
[2024-05-19 07:09] LABS: Calcium 7.9 mg/dL (8.6-10.3); Creatinine, Serum 0.86 mg/dL (0.67-1.17); Magnesium 1.8 mg/dL (1.9-2.7); eGFR CKD-EPI 109.5 (>60)
[2024-05-19 07:43] LABS: Mean Platelet Volume 7.3 fL (7.5-11.2); Platelet Count 67 10^3/uL (150-450)
[2024-05-19] MEDS: Magnesium Sulfate 2 gm BAG 2 GM/50 ML BAG IVPB ONE ×2 (09:52→12:44)
[2024-05-19] MEDS ORDERED: Ketamine HCL 50 mg/ml 10 ml VIAL (500 MG) ONE (12:00)
[2024-05-19] MEDS ORDERED: Morphine 2 MG/ML SYRINGE IV PRN (15:06)
[2024-05-19 15:27] LABS: Albumin 1.8 g/dL (3.2-5.2); Albumin/Globulin Ratio 0.4 (1-3); Direct Bilirubin 5.8 mg/dL (0.03-0.18); Globulin 4.1 g/dL (2-4); Indirect Bilirubin 5.3 mg/dL (0.3-1.0); Total Bilirubin 11.1 mg/dL (0.2-1.0); Total Protein 5.9 g/dL (6.4-8.9)
[2024-05-19] MEDS: Morphine 2 MG/ML SYRINGE IV PRN (18:30)
[2024-05-19] MEDS ORDERED: Lorazepam PYXIS KEY PRN ×2 (18:42→22:34)
[2024-05-19] MEDS: LORazepam 2 mg VIAL 1 ml IV PUSH ONE ×3 (18:53→22:34)
[2024-05-19] MEDS: LORazepam 2 mg VIAL 1 ml ONE ×3 (18:56→23:34)
[2024-05-19 20:28] LABS: CO2 Carbon Dioxide < 7 mmol/L (22-32); Glucose 13 mg/dL (70-100); Total Bilirubin 13.6 mg/dL (0.2-1.0)
[2024-05-19 20:29] LABS: ALT 70 U/L (7-52); AST 151 U/L (13-39); Albumin < 1.7 g/dL (3.2-5.2); Albumin/Globulin Ratio 0.5 (1-3); Alkaline Phosphatase 318 U/L (35-149); Blood Urea Nitrogen 43 mg/dL (6-24); C Reactive Protein 15.44 mg/L (<8.01); Calcium 8.9 mg/dL (8.6-10.3); Chloride 93 mmol/L (101-111); Globulin 3.4 g/dL (2-4); Lipase 161 U/L (11.0-82.0); Potassium 5.9 mmol/L (3.5-5.0); Sodium 127 mmol/L (135-145); Total Protein 5.1 g/dL (6.4-8.9); eGFR CKD-EPI 58.5 (>60)
[2024-05-19] MEDS ORDERED: LORazepam 2 MG/ML 1 mL Syringe IV PRN (20:38)
[2024-05-19 20:39] LABS: ABS Eosinophils 0.1 10^3/uL (0.0-0.5); ABS Lymphocytes 0.6 10^3/uL (1.0-4.8); ABS Monocytes 0.8 10^3/uL (0.0-1.1); ABS Nucleated RBC 0.11 10^3/ul; Anisocytosis 2+; Burr Cells 3+; Eosinophil % 0.4 %; Hematocrit 28.3 % (38-53); Hemoglobin 8.7 g/dL (13.2-16.3); Hypochromasia 2+; Lymphocyte % 4.2 %; Mean Corpuscular Hemoglobin 29.9 pg (27-33); Mean Corpuscular Hgb Conc 30.6 g/dL (31-36); Mean Corpuscular Volume 97.6 fL (80-97); Nucleated Red Blood Cells % 0.8 %/100WBC (0.0-0.8); Platelet Count Platelets clumped. 10^3/uL (150-450); White Blood Count 13.4 10^3/uL (3.6-10.2)
[2024-05-19] MEDS: LORazepam 2 mg VIAL 1 ml IV PUSH PRN (20:53)
[2024-05-19] MEDS: D5W 1000 ml BAG 1,000 ML IV SCH (21:30)
[2024-05-19] MEDS: Morphine 4 MG/ML VIAL (1 ml) ONE ×2 (21:35→22:09)
[2024-05-19] MEDS: Dextrose 50% Syringe 50 ml 25 GM/50 ML SYRINGE ONE (21:35)
[2024-05-19] MEDS: Dextrose 50% Syringe 50 ml 25 GM/50 ML SYRINGE IV PUSH PRN (22:31)
[2024-05-19] MEDS: Norepinephrine 4 MG/250mL D5W 4,000 MCG/250 ML BAG IV SCH (23:00)
[2024-05-19] MEDS: Propofol 10 mg/ml 100 ML BTL 1,000 MG/100 ML BTL IV SCH (23:00)
[2024-05-19] MEDS ORDERED: Phenylephrine 40 mcg/mL 10mL (400mcg) SYRINGE IV PUSH PRN (23:07)
[2024-05-19] MEDS: Lactated Ringers 1000 ml BAG 1,000 ML IV ONE (23:10)
[2024-05-19 23:59] LABS: Resp Rate 16
[2024-05-20 00:03] LABS: PCO2 Arterial 38 mmHg (35-45); PO2 Arterial 160 mmHg (80-100)
[2024-05-20 00:14] LABS: Activated Partial Thrombo Time 80.5 seconds (26.0-38.0); INR 4.57 (0.85-1.14)
[2024-05-20] MEDS: Ketamine HCL 50 mg/ml 10 ml VIAL (500 MG) ONE (00:20)
[2024-05-20 00:23] LABS: Hematocrit 28.2 % (38-53); Hemoglobin 8.2 g/dL (13.2-16.3); Mean Corpuscular Hemoglobin 29.4 pg (27-33); Mean Corpuscular Hgb Conc 29.3 g/dL (31-36); Mean Corpuscular Volume 100.6 fL (80-97); Red Cell Distribution Width 22.6 % (12-17); White Blood Count 16.7 10^3/uL (3.6-10.2)
[2024-05-20 00:29] LABS: ALT 130 U/L (7-52); AST 380 U/L (13-39); Albumin < 1.7 g/dL (3.2-5.2); Albumin/Globulin Ratio 0.5 (1-3); Alkaline Phosphatase 301 U/L (35-149); Anion Gap 27 mmol/L (2-16); Blood Urea Nitrogen 44 mg/dL (6-24); CO2 Carbon Dioxide 7 mmol/L (22-32); Calcium 8.6 mg/dL (8.6-10.3); Chloride 92 mmol/L (101-111); Creatinine, Serum 1.63 mg/dL (0.67-1.17); Globulin 3.1 g/dL (2-4); Glucose 89 mg/dL (70-100); Magnesium 3.3 mg/dL (1.9-2.7); Phosphorus 7.9 mg/dL (2.5-5.0); Potassium 5.8 mmol/L (3.5-5.0); Sodium 126 mmol/L (135-145); Total Bilirubin 12.5 mg/dL (0.2-1.0); Total Protein 4.8 g/dL (6.4-8.9)
[2024-05-20 00:47] LABS: Lipase 242 U/L (11.0-82.0)
[2024-05-20] MEDS: VASOPRESSIN IVPREMIX BTL 40 UNIT/100 ML BTL IV SCH (00:56)
[2024-05-20] MEDS: VASOPRESSIN IVPREMIX BTL 40 UNIT/100 ML BTL IV ONE (01:04)
[2024-05-20] MEDS: Dextrose 50% Syringe 50 ml 25 GM/50 ML SYRINGE ONE (01:14)
[2024-05-20] MEDS ORDERED: HYDROmorphone 0.5 MG/0.5 ML SYRINGE IV SLOW PU PRN (01:26)
[2024-05-20 01:27] LABS: ABS Lymphocytes 0.8 10^3/uL (1.0-4.8); ABS Monocytes 1.3 10^3/uL (0.0-1.1); ABS Neutrophils 14.5 10^3/uL (1.5-7.6); ABS Nucleated RBC 0.06 10^3/ul; Eosinophil % 0.3 %; Lymphocyte % 4.8 %; Mean Platelet Volume 7.9 fL (7.5-11.2); Nucleated Red Blood Cells % 0.4 %/100WBC (0.0-0.8); Platelet Count 82 10^3/uL (150-450)
[2024-05-20 01:28] LABS: Acanthocytes 3+; Anisocytosis 2+; Macrocytosis 1+
[2024-05-20 01:30] LABS: Osmolality Serum 306 mOsm/kg (275-295)
[2024-05-20] MEDS ORDERED: Dextran 70/Hypromellose Tears Eye Drops 15 ml BTL (for Artificials Tears) BOTH EYES PRN (01:45)
[2024-05-20 01:49] LABS: Creatine Kinase 191 U/L (10-223)
[2024-05-20] MEDS ORDERED: Zosyn per Pharmacy NOTE FOLLOW UP SCH (02:00)
[2024-05-20 02:07] LABS: Urine Appearance Turbid; Urine Bilirubin 1+ (Negative); Urine Blood 1+ (Negative); Urine Color Dark-Yellow; Urine Glucose Negative (Negative); Urine Ketones Negative (Negative); Urine Nitrite Negative (Negative); Urine Protein Trace (Negative); Urine Specific Gravity 1.016 (1.002-1.030); Urine Urobilinogen 1+ (Negative)
[2024-05-20 02:32] LABS: Urine Amorphous Crystals Present /HPF (Absent); Urine Bacteria Absent /HPF (Absent); Urine Granular Casts Present /LPF (Absent); Urine Red Blood Cell 1+(3-5/hpf) /HPF (0-Trace); Urine Squamous Epithelial Cell Present /HPF (Absent); Urine White Blood Cell Trace(0-5/hpf) /HPF (0-Trace)
[2024-05-20 02:44] LABS: Hepatitis B Surface Antigen Nonreactive (Nonreactive)
[2024-05-20 02:49] LABS: Hepatitis A Ab IgM Negative (Negative); Hepatitis B Core IgM Nonreactive (Nonreactive)
[2024-05-20 03:01] LABS: Hepatitis C Antibody Reactive (Negative)
[2024-05-20] MEDS: Iodixanol 320 (CONTRAST) 100 ML SDV IV ONE (03:08)
[2024-05-20] MEDS: Piperacillin/Tazobac 3.375 BAG 3.375 GM/100 ML BAG IV ONE (03:12)
[2024-05-20 03:16] LABS: Resp Rate 28
[2024-05-20 03:18] LABS: Alcohol, S < 13 mg/dL (<13)
[2024-05-20 03:18] LABS: PCO2 Arterial 24 mmHg (35-45); PO2 Arterial 160 mmHg (80-100)
[2024-05-20] MEDS: Pantoprazole VIAL 40 MG VIAL IV SCH ×2 (03:21→03:27)
[2024-05-20] MEDS: Albumin Human 25% 25 GM/100 ML BTL IV ONE (03:25)
[2024-05-20] MEDS: Albumin Human 5% 0 GM/0 ML BTL IV ONE (03:40)
[2024-05-20] MEDS: Octreotide Acetate 50 MCG in NS 0.9% 50 ML 50 ML IV ONE (03:41)
[2024-05-20 03:43] LABS: INR 4.92 (0.85-1.14)
[2024-05-20] MEDS: Octreotide Acetate 500 MCG in NS 0.9% 100 ml BAG 100 ML IV SCH (04:00)
[2024-05-20 04:06] LABS: Urine Benzodiazepine Screen None Detected (None Detect); Urine Cannabinoids Screen None Detected (None Detect); Urine Opiates Screen Presumptive Positive (None Detect)
[2024-05-20 04:13] LABS: Albumin 1.7 g/dL (3.2-5.2); Albumin/Globulin Ratio 0.5 (1-3); Globulin 3.7 g/dL (2-4); Magnesium 3.4 mg/dL (1.9-2.7); Total Bilirubin 14.4 mg/dL (0.2-1.0); Total Protein 5.4 g/dL (6.4-8.9)
[2024-05-20 04:14] LABS: Calcium 8.5 mg/dL (8.6-10.3); Creatinine, Serum 1.71 mg/dL (0.67-1.17)
[2024-05-20 04:16] LABS: Potassium 6.1 mmol/L (3.5-5.0)
[2024-05-20 04:21] LABS: Osmolality Serum 308 mOsm/kg (275-295)
[2024-05-20 04:30] LABS: Phosphorus 8.2 mg/dL (2.5-5.0)
[2024-05-20 04:38] LABS: Hematocrit 30.8 % (38-53); Hemoglobin 9.1 g/dL (13.2-16.3); Mean Corpuscular Hemoglobin 29.3 pg (27-33); Mean Corpuscular Hgb Conc 29.5 g/dL (31-36); Mean Corpuscular Volume 99.3 fL (80-97); Red Blood Count 3.11 10^6/uL (4.06-5.63); Red Cell Distribution Width 22.2 % (12-17); White Blood Count 23.6 10^3/uL (3.6-10.2)
[2024-05-20] MEDS: Lactulose 300 ML for PR 200 GM/300 ML BTL PR ONE (04:39)
[2024-05-20] MEDS: Chlorhexidine MOUTHWASH 0.12% 15 ML UDC TOPICAL SCH (04:55)
[2024-05-20] MEDS: Hydrocortisone INJ 100 MG/2ML 2 ML VIAL IV ONE (04:55)
[2024-05-20 05:11] LABS: ABS Lymphocytes 0.6 10^3/uL (1.0-4.8); ABS Monocytes 0.9 10^3/uL (0.0-1.1); ABS Nucleated RBC 0.08 10^3/ul; Eosinophil % 0.2 %; Lymphocyte % 2.7 %; Mean Platelet Volume 9.2 fL (7.5-11.2); Nucleated Red Blood Cells % 0.3 %/100WBC (0.0-0.8); Platelet Count 70 10^3/uL (150-450)
[2024-05-20 05:12] LABS: Acanthocytes 3+; Anisocytosis 2+
[2024-05-20] MEDS: Midazolam 5 mg/5 ml VIAL 1 mg/ml 5 ml VIAL (5 mg) ONE (05:30)
[2024-05-20 05:55] LABS: HDL Cholesterol 4.7 mg/dL
[2024-05-20] MEDS: ACETYLCYSTEINE IV ONE ×3 (06:03→11:36)
[2024-05-20] MEDS: D5W IV ONE ×3 (06:03→11:36)
[2024-05-20] MEDS: Lactated Ringers 1000 ml BAG 1,000 ML IV ONE (06:04)
[2024-05-20 06:34] LABS: PCO2 Arterial 22 mmHg (35-45); PO2 Arterial 144 mmHg (80-100)
[2024-05-20] MEDS: ZOSYN 3.375 GM Q8H per EXTENDED INFUSION IV SCH (08:23)
[2024-05-20 09:53] LABS: Resp Rate 30
[2024-05-20] MEDS: Albumin Human 25% 25 GM/100 ML BTL IV SCH (09:56)
[2024-05-20 10:00] LABS: PO2 Arterial 144 mmHg (80-100)
[2024-05-20] MEDS ORDERED: Vancomycin per Pharmacy 1 EA NOTE FOLLOW UP SCH (10:00)
[2024-05-20 10:03] LABS: PCO2 Arterial <20 mmHg (35-45)
[2024-05-20] MEDS: Norepinephrine 16 MG/250mL NS 16,000 MCG/250 ML BAG IV SCH ×2 (10:20→19:22)
[2024-05-20] MEDS: Hydrocortisone INJ 100 MG/2ML 2 ML VIAL IV SCH (10:25)
[2024-05-20] MEDS: fentaNYL INFUSION 50 mcg/mL VL 2,500 MCG/50 ML VIAL IV SCH (10:31)
[2024-05-20 10:40] LABS: Albumin/Globulin Ratio 0.7 (1-3); Alkaline Phosphatase 353 U/L (35-149); Blood Urea Nitrogen 46 mg/dL (6-24); CO2 Carbon Dioxide 9 mmol/L (22-32); Calcium 8.1 mg/dL (8.6-10.3); Chloride 86 mmol/L (101-111); Creatinine, Serum 1.81 mg/dL (0.67-1.17); Glucose 241 mg/dL (70-100); Sodium 122 mmol/L (135-145); eGFR CKD-EPI 46.7 (>60)
[2024-05-20 10:45] LABS: Anion Gap 27 mmol/L (2-16)
[2024-05-20] MEDS ORDERED: Dextrose 50% Syringe 50 ml 25 GM/50 ML SYRINGE IV PUSH PRN (10:45)
[2024-05-20 10:49] LABS: Hemoglobin 7.9 g/dL (13.2-16.3); Mean Corpuscular Hemoglobin 29.7 pg (27-33); Mean Corpuscular Hgb Conc 29.4 g/dL (31-36); Mean Corpuscular Volume 100.8 fL (80-97); Red Blood Count 2.68 10^6/uL (4.06-5.63); White Blood Count 21.6 10^3/uL (3.6-10.2)
[2024-05-20] MEDS: Vancomycin 1,250 MG in NS 0.9% 250 ml 250 ML IVPB ONE (11:01)
[2024-05-20] MEDS: Norepinephrine 4 MG/250mL D5W 4,000 MCG/250 ML BAG IV SCH (11:14)
[2024-05-20 11:17] LABS: ABS Lymphocytes 0.7 10^3/uL (1.0-4.8); ABS Monocytes 1.1 10^3/uL (0.0-1.1); ABS Neutrophils 19.7 10^3/uL (1.5-7.6); ABS Nucleated RBC 0.02 10^3/ul; Eosinophil % 0.2 %; Lymphocyte % 3.1 %; Nucleated Red Blood Cells % 0.1 %/100WBC (0.0-0.8); Platelet Count Platelets clumped. 10^3/uL (150-450)
[2024-05-20] MEDS: SODIUM BICARB IV SCH ×2 (11:22→16:52)
[2024-05-20] MEDS: D5W IV SCH ×2 (11:22→16:52)
[2024-05-20 11:34] LABS: ALT 1230 U/L (7-52)
[2024-05-20 12:18] LABS: Urine Appearance Turbid; Urine Bilirubin Negative (Negative); Urine Blood 3+ (Negative); Urine Color Dark-Yellow; Urine Glucose Trace (Negative); Urine Ketones 2+ (Negative); Urine Nitrite Negative (Negative); Urine Protein 1+ (>=30 mg/dL) (Negative); Urine Specific Gravity 1.033 (1.002-1.030); Urine Urobilinogen Negative (Negative)
[2024-05-20] MEDS: Insulin Infusion 100unit/100mL 100 UNIT/100 ML BAG IV SCH (12:22)
[2024-05-20 12:30] LABS: Urine Bacteria Absent /HPF (Absent); Urine Red Blood Cell 3+(>10/hpf) /HPF (0-Trace); Urine Squamous Epithelial Cell Present /HPF (Absent); Urine White Blood Cell 3+(>20/hpf) /HPF (0-Trace)
[2024-05-20 14:12] LABS: Potassium, Whole Blood 6.4 mmol/L (3.4-4.5)
[2024-05-20 14:50] LABS: PCO2 Arterial 21 mmHg (35-45); PO2 Arterial 147 mmHg (80-100)
[2024-05-20 15:22] LABS: Hematocrit 24.9 % (38-53); Hemoglobin 7.3 g/dL (13.2-16.3); Mean Corpuscular Hemoglobin 29.9 pg (27-33); Mean Corpuscular Hgb Conc 29.4 g/dL (31-36); Mean Corpuscular Volume 101.5 fL (80-97); Mean Platelet Volume 8.1 fL (7.5-11.2); Platelet Count 67 10^3/uL (150-450); Red Blood Count 2.46 10^6/uL (4.06-5.63); Red Cell Distribution Width 22.5 % (12-17); White Blood Count 19.5 10^3/uL (3.6-10.2)
[2024-05-20 16:03] LABS: INR 5.63 (0.85-1.14)
[2024-05-20 16:14] LABS: Anion Gap 25 mmol/L (2-16); Blood Urea Nitrogen 45 mg/dL (6-24); CO2 Carbon Dioxide 12 mmol/L (22-32); Chloride 87 mmol/L (101-111); Creatinine, Serum 1.94 mg/dL (0.67-1.17); Glucose 218 mg/dL (70-100); Sodium 124 mmol/L (135-145)
[2024-05-20] MEDS: Cefepime 2 GM in Dextrose 2 GM/50 ML BAG IV SCH (16:17)
[2024-05-20] MEDS: metroNIDAZOLE IV 500 MG/100ML 500 MG/100 ML BAG IVPB SCH (16:19)
[2024-05-20 16:29] LABS: Potassium, Whole Blood 6.8 mmol/L (3.4-4.5)
[2024-05-20] MEDS ORDERED: metroNIDAZOLE IV 500 MG/100ML 500 MG/100 ML BAG IVPB SCH (16:30)
[2024-05-20 16:46] LABS: ABS Basophils 0.1 10^3/uL (0.0-0.1); ABS Eosinophils 0.1 10^3/uL (0.0-0.5); ABS Lymphocytes 0.9 10^3/uL (1.0-4.8); ABS Monocytes 0.5 10^3/uL (0.0-1.1); ABS Neutrophils 17.8 10^3/uL (1.5-7.6); ABS Nucleated RBC 0.02 10^3/ul; Eosinophil % 0.6 %; Lymphocyte % 4.6 %; Nucleated Red Blood Cells % 0.1 %/100WBC (0.0-0.8)
[2024-05-20] MEDS: CALCIUM GLUCONATE 1GM/50ML NS 1 GM/50 ML BAG IV ONE (17:13)
[2024-05-20] MEDS: Dextrose 50% Syringe 50 ml 25 GM/50 ML SYRINGE IV PUSH PRN (17:15)
[2024-05-20] MEDS: Vancomycin 750 MG in NS 0.9% 250 ML IVPB SCH (19:35)
[2024-05-20] MEDS: Midazolam PREMIXBAG 1 MG/ML NS 100 ML IV SCH (19:43)
[2024-05-20] MEDS ORDERED: D5W IV SCH (20:00)
[2024-05-20] MEDS ORDERED: SODIUM BICARB IV SCH (20:00)
[2024-05-20] MEDS ORDERED: Lorazepam PYXIS KEY PRN (20:13)
[2024-05-20 20:14] VITALS: BP 106/71
[2024-05-20] MEDS: LORazepam 2 mg VIAL 1 ml IV PUSH ONE (20:22)
[2024-05-20] MEDS: Morphine 4 MG/ML VIAL (1 ml) IV PRN (20:23)
[2024-05-22] MEDS ORDERED: Vancomycin Trough Check NOTE FOLLOW UP ONE (05:30)
== END 2024-05-20 20:38 | disposition expired | DRG 663 ==
LOC: EDHOLD 21:14 → ED 21:14 → SUATTDRO 05-14 06:05 → MEDTELE 05-14 08:45 → ICU 05-19 22:32
PROVIDERS: ADMIT Internal Medicine; ATTEND Student in an Organized Health Care Education/Training Program